=== PATIENT | female | born 1955 | race Caucasian/White ===

== ENCOUNTER 2017-09-09 08:00 | Inpatient (IN) | payer MEDICARE ==
[2017-09-16] MEDS ORDERED: Midazolam HCl 2 mg/2 ml Vial ONE (06:19)
[2017-09-16] MEDS ORDERED: Fentanyl 100 MCG/2 ML VIAL ONE ×2 (06:19→07:00)
[2017-09-16] MEDS ORDERED: Ropivacaine 0.2% HCl/PF 20 ML ONE (06:20)
[2017-09-16] MEDS ORDERED: Bupivacaine/Epinephrine 0.25% 30 ML VIAL ONE (06:40)
[2017-09-16] MEDS ORDERED: Clindamycin/D5W 900 mg/50 ml Premix Bag ONE (06:40)
[2017-09-16] MEDS ORDERED: Tranexamic Acid 1,000 MG/100 ML BAG ONE ×2 (06:43→08:51)
[2017-09-16] MEDS ORDERED: Ropivacaine HCl/PF 250 ML in Premix Bag 1 BAG NERVE BLCK SCH (06:54)
[2017-09-16] MEDS ORDERED: HYDROcodone/Acetaminophen 10/325 mg Tablet PO PRN ×4 (06:54→09:41)
[2017-09-16] MEDS ORDERED: Zolpidem Tartrate 5 MG TAB PO PRN ×2 (06:54→09:41)
[2017-09-16] MEDS ORDERED: traMADol HCl 50 MG TAB PO PRN ×3 (06:54→09:41)
[2017-09-16] MEDS ORDERED: Ondansetron HCl/PF 4 MG/2 ML Vial IVP PRN ×3 (06:54→09:41)
[2017-09-16] MEDS ORDERED: Promethazine HCl 25 MG/ML VIAL IM PRN ×3 (06:54→09:41)
[2017-09-16] MEDS ORDERED: Fentanyl 100 MCG/2 ML VIAL IV PRN (06:55)
[2017-09-16] MEDS ORDERED: Promethazine HCl 25 MG/ML VIAL SLOW IVP PRN (08:47)
--- NOTE | 2017-09-16 09:05 | RAD ---
LEFT KNEE TWO VIEWS: History: 62-year-old female status post total knee replacement. FINDINGS: Recent post op total knee replacement changes are noted without evidence of dislocation or periprosth etic fracture. IMPRESSION: Recent unremarkable status post total knee replacement. POS: [facility]
[2017-09-16] MEDS ORDERED: Acetaminophen 325 MG TAB PO PRN (09:41)
[2017-09-16] MEDS ORDERED: Multivitamin W/ Minerals 1 TAB PO SCH ×2 (09:41→10:15)
[2017-09-16] MEDS ORDERED: Aspirin 325 MG TAB PO SCH (09:41)
[2017-09-16] MEDS ORDERED: Ferrous Gluconate 324 MG TAB PO SCH ×2 (09:41→10:15)
[2017-09-16] MEDS ORDERED: Senokot S 8.6-50 MG TAB PO SCH ×2 (09:41→10:15)
[2017-09-16] MEDS ORDERED: Fentanyl 100 MCG/2 ML VIAL SLOW IVP PRN (09:41)
[2017-09-16] MEDS ORDERED: diphenhydrAMINE 25 MG CAP PO PRN (09:41)
[2017-09-16] MEDS ORDERED: hydrALAZINE 20 MG/ML VIAL SLOW IVP PRN (10:23)
[2017-09-16] MEDS ORDERED: Labetalol HCl 100 MG/20 ML VIAL SLOW IVP PRN (10:23)
[2017-09-16 10:38] VITALS: BMI 25.6
[2017-09-16] MEDS: Dextrose 5 %-0.45 % NaCl 1,000 ML IV SCH (11:07)
--- NOTE | 2017-09-16 12:53 | OP ---
DATE OF PROCEDURE: 09/16/2017 PREOPERATIVE DIAGNOSIS: Left knee osteoarthritis. POSTOPERATIVE DIAGNOSIS: Left knee osteoarthritis. PROCEDURE PERFORMED: Left total knee arthroplasty. STAFF: Ward Castro M.D. BLIND HANGER: NAYLA Rolon ANESTHESIA: Kirk. The patient received a LMA with single shot, had a canal catheter and single puneet t sciatic. ESTIMATED BLOOD LOSS: 100 mL. TOURNIQUET TIME: 64 minutes at 300 mmHg. ANTIBIOTICS: Vancomycin 1 gram, clindamycin 900. The patient received TXA 1 gm preoperative. IMPLANTS: The patient had a Cristian size 3 CR femur, size 2 CR tibial baseplate, A27 patella and a 9 mm CS poly. COMPLICATIONS: None. HISTORY OF PRESENT ILLNESS: Mrs. Hudson is a 62-year-old female who presented after 8 years of knee p ain. The patient had the [place] left knee. The patient's medial knee pain had previous injections, morning stiffness, weather changes, she desired relief. I discussed with her the risks and benefits of left total knee arthroplasty including pain, scar, bleeding, infection, damage to vital structure s, decreased range of motion or strength, continued pain despite surgical intervention, need for furt her surgeries, failure of procedure. The patient understood the risks and benefits and elected to pr oceed. PROCEDURE IN DETAIL: Timeout was performed designating the patient's left lower extremity as the ope rative site based on sight, consents markings. After completion of timeout, the patient's left lower extremity was prepped and draped in sterile fashion. Tourniquet was brought up and left up for a to cris of 64 minutes. Anterior midline approach medial parapatellar arthrotomy and did a medial soft ti ssue release, removed osteophytes, took the fat pad, everted the patella, exposed the distal femur. Sized and mapped out our distal femur cut at 0 degrees varus valgus and 4 degrees of interest slope, 8 and 6 mm respectively. I then sized to size 3 femur. We cut our block, cut our femur, we then map ped out our tibia, during release of our PCL to expose our tibia better, we mapped and cut at 0 degre es varus valgus, 1 and 5, 4 degrees posterior slope. We were happy with the alignment of the cut. W e removed it, placed our lamina hadoop administrator, medial and lateral osteophytes as well as posteriorly as we ll as our menisci. After completion of this, we then placed a size 2 tibia with a 9 mm poly and the p atient had a 3 CR femur. I liked the overall tracking, full extension, good stability in flexion and full extension. The patient was stable with the varus and valgus stresses anterior, posterior trans lation. We then washed, everted the patella, then went from 22 down to about 12 mm and placed an A27 button. We then drilled our lugs for our tibia, cut our keel for the tibia. We cemented in our tib ia, placed our poly, cemented our femur. We cement our patella, removed all excess cement, washed th e joint, injected 35 mL of Marcaine 0.25% with epinephrine into the joint. We then closed with two # 2 Vicryl, #2 Quill, 0 Quill, then 2-0 Quill, and glue. The patient will be weightbearing as tolerated. The patient will follow [facility] protocol, admitte d to the hospital.
[2017-09-16] MEDS: Clindamycin/D5W 900 MG in Premix Bag 1 BAG IVPB SCH ×2 (13:41→19:58)
--- NOTE | 2017-09-16 13:48 | PDOC.PN ---
- Subjective Encounter Start Date: 09/16/17 Encounter Start Time: 13:45 Patient seen and examined. No new complaints. Consult for Med mngt. Follow [facility]. - Objective MAR Reviewed: Yes Vital Signs & Weight: Vital Signs (12 hours) Temp Pulse Resp BP Pulse Ox 09/16/17 10:00 97.8 F 74 18 161/72 H 95 Weight Weight 140 lb EKG Reviewed by me: Yes (EKG SR) Phys Exam - Physical Examination Constitutional: NAD Respiratory: no wheezing, no rhonchi Cardiovascular: RRR, no rub Gastrointestinal: soft, non-tender, positive bowel sounds Musculoskeletal: no edema Neurological: non-focal, moves all 4 limbs Psychiatric: A&O x 3 Dx/Plan - Plan DVT proph w/SCDs IMPRESSION: 1. HTN 2. HLD 3. CKD 2 4. Chronic diastolic HF - compensated 5. Depression - no suicidal ideation PLAN: * Cont Toprol XL at home dose. * Resume Citalopram * Monitor closely for volume overload Review of Systems - Review of Systems Constitutional: negative: Fever, Chills, Sweats, Weakness, Malaise Respiratory: negative: Cough, Dry, Shortness of Breath, Hemoptysis, SOB with Excertion, Pleuritic Pain, Sputum, Wheezing Cardiovascular: negative: Chest Pain, Palpitations, Orthopnea, Paroxysmal Noc. Dyspnea, Edema, Light Headedness - Medications/Allergies Allergies/Adverse Reactions: Allergies Allergy/AdvReac Type Severity Reaction Status Date / Time Penicillins Allergy Verified 09/09/17 12:27 Medications: Current Medications Acetaminophen (Tylenol) 650 mg PO Q4H PRN PRN Reason: LOPES/ T > 101F; Mild Pain (1-3) Hydrocodone Bitart/Acetaminophen ([place] 10/325) 1 tab PO Q4H PRN PRN Reason: Moderate Pain (4-6) Hydrocodone Bitart/Acetaminophen ([place] 10/325) 2 tab PO Q4H PRN PRN Reason: Severe Pain (7-10) Aspirin (Aspirin Chewable) 81 mg PO BID [facility] Citalopram Hydrobromide (Celexa) 20 mg PO BID [facility] Diphenhydramine HCl (Benadryl) 25 mg PO Q6H PRN PRN Reason: Itching Fentanyl (Sublimaze) 50 mcg SLOW IVP Q30MIN PRN PRN Reason: Moderate Pain (4-6) Fentanyl (Sublimaze) 100 mcg SLOW IVP Q1H PRN PRN Reason: Severe Pain (7-10) Ferrous Gluconate (Fergon) 324 mg PO BID [facility] Hydralazine HCl (Apresoline) 5 mg SLOW IVP Q4H PRN PRN Reason: SBP Greater Than 180 Hydrocodone Bitartrate/Ibuprofen (Vicoprofen 7.5/200) 1 tab PO Q4H PRN PRN Reason: Mild Pain (1-3) Hydrocodone Bitartrate/Ibuprofen (Vicoprofen 7.5/200) 2 tab PO Q4H PRN PRN Reason: Moderate Pain (4-6) Ropivacaine 250 ml/ Device 250 mls @ 0 mls/hr [facility]ERVE BLCK INF [facility] PRN Reason: As Directed Clindamycin Phosphate/Dextrose (900 mg/ Device) 50 mls @ 100 mls/hr IVPB 1300, 1900 [facility] Stop: 09/16/17 19:29 Last Admin: 09/16/17 13:41 Dose: 50 mls Dextrose/Sodium Chloride (D5 1/2 Ns) 1,000 mls @ 100 mls/hr IV .Q10H [facility] Last Admin: 09/16/17 11:07 Dose: Not Given Vancomycin HCl 1 gm/ Device 200 mls @ 200 mls/hr IVPB 1900 [facility] Stop: 09/16/17 19:59 Iron/Minerals/Multivitamins (Theragran M) 1 tab PO DAILY [facility] Labetalol HCl (Normodyne) 10 mg SLOW IVP Q4H PRN PRN Reason: Systolic BP > 180 Metoprolol Succinate (Toprol Xl) 50 mg PO BID [facility] Ondansetron HCl (Zofran) 4 mg IVP Q6H PRN PRN Reason: Nausea/Vomiting Promethazine HCl (Phenergan) 12.5 mg IM Q4H PRN PRN Reason: Nausea/Vomiting Senna/Docusate Sodium (Senokot S) 2 tab PO BID [facility] Sodium Chloride (Flush - Normal Saline) 10 ml IVF Q12HR [facility] Last Admin: 09/16/17 11:07 Dose: Not Given Sodium Chloride (Flush - Normal Saline) 10 ml IVF PRN PRN PRN Reason: Saline Flush Tramadol HCl (Ultram) 100 mg PO Q6H PRN PRN Reason: Mild Pain (1-3) Zolpidem Tartrate (Ambien) 5 mg PO HSPRN PRN PRN Reason: Insomnia
[2017-09-16] MEDS: Fentanyl 100 MCG/2 ML VIAL SLOW IVP PRN ×2 (14:47→22:18)
[2017-09-16] MEDS ORDERED: Propofol 200 MG/20 ML VIAL ONE (16:14)
[2017-09-16] MEDS ORDERED: ePHEDrine/0.9% NaCl/PF SYRINGE 50 mg/10 ml ONE (16:14)
[2017-09-16] MEDS ORDERED: Ondansetron HCl/PF 4 MG/2 ML Vial ONE (16:14)
[2017-09-16] MEDS ORDERED: Dexamethasone 20 MG/5 ML VIAL ONE (16:14)
[2017-09-16] MEDS ORDERED: Vancomycin HCl 1 GM in Premix Bag 1 BAG IVPB SCH (19:00)
[2017-09-16] MEDS: Citalopram 20 MG TAB PO SCH (19:59)
[2017-09-16] MEDS: Senokot S 8.6-50 MG TAB PO SCH (21:30)
[2017-09-16] MEDS: Ferrous Gluconate 324 MG TAB PO SCH (21:31)
[2017-09-17] MEDS: Dextrose 5 %-0.45 % NaCl 1,000 ML IV SCH ×3 (01:27→15:45)
[2017-09-17] MEDS: Fentanyl 100 MCG/2 ML VIAL SLOW IVP PRN ×2 (02:30→05:49)
[2017-09-17 05:48] LABS: Hematocrit 35.6 % (36.0-47.0); Mean Platelet Volume 7.3 fL (7.4-10.4); Red Blood Cell (RBC) Count 3.69 mill/uL (4.20-5.40); White Blood Cell (WBC) Count 14.5 thou/uL (4.8-10.8)
[2017-09-17] MEDS ORDERED: Morphine 4 MG/ML VIAL ONE (08:21)
[2017-09-17] MEDS ORDERED: Bupivacaine PF 0.5% 30 ML VIAL ONE (08:24)
[2017-09-17] MEDS ORDERED: Morphine CADD 1 MG/ML CADD IV PRN (09:37)
[2017-09-17] MEDS ORDERED: diphenhydrAMINE 50 MG/ML VIAL IVP PRN (09:38)
[2017-09-17] MEDS: Ferrous Gluconate 324 MG TAB PO SCH ×2 (09:39→21:10)
[2017-09-17] MEDS: Multivitamin W/ Minerals 1 TAB PO SCH (09:40)
[2017-09-17] MEDS: Citalopram 20 MG TAB PO SCH ×2 (09:40→21:11)
[2017-09-17] MEDS: Senokot S 8.6-50 MG TAB PO SCH ×2 (09:40→21:10)
[2017-09-17] MEDS ORDERED: Sodium Chloride 0.9% 500 ML IVPB SCH (09:45)
[2017-09-17] MEDS ORDERED: Ondansetron HCl/PF 4 MG/2 ML Vial IVP SCH (09:45)
[2017-09-17] MEDS: Acetaminophen 1,000 MG in Premix Bag 1 BAG IVPB SCH ×3 (10:18→21:11)
[2017-09-17] MEDS ORDERED: hydrALAZINE 20 MG/ML VIAL SLOW IVP PRN (16:35)
[2017-09-17] MEDS ORDERED: cloNIDine 0.1 MG TAB PO PRN (16:36)
--- NOTE | 2017-09-17 17:54 | PDOC.PN ---
- Subjective Encounter Start Date: 09/17/17 Encounter Start Time: 17:51 Patient seen and examined. No new complaints. No overnight events. BP was uncontrolled earlier - prob due to pain. - Objective MAR Reviewed: Yes Vital Signs & Weight: Vital Signs (12 hours) Temp Pulse Resp BP BP Pulse Ox 09/17/17 16:30 98.1 F 81 16 125/76 95 09/17/17 15:43 68 200/73 H 09/17/17 08:00 98.2 F 68 20 122/76 99 Weight Admit Weight 140 lb Weight 140 lb I&O: 09/16/17 09/17/17 09/18/17 06:59 06:59 06:59 Output Total 900 Balance -900 Result Diagrams: 09/17/17 04:51 Phys Exam - Physical Examination Constitutional: NAD Respiratory: no wheezing, no rhonchi Cardiovascular: RRR, no rub Gastrointestinal: soft, non-tender, positive bowel sounds Musculoskeletal: no edema Neurological: moves all 4 limbs Psychiatric: A&O x 3 Dx/Plan - Plan cont current plan of care, DVT proph w/SCDs IMPRESSION: 1. HTN - was uncontrolled earlier. 2. HLD 3. CKD 2 4. Chronic diastolic HF - compensated 5. Depression - no suicidal ideation PLAN: * Cont current meds as below * Cont PRN antihypertensives * Cont Toprol XL (home dose) * Resume Citalopram * Monitor closely for volume overload Review of Systems - Review of Systems Respiratory: negative: Cough, Dry, Shortness of Breath, Hemoptysis, SOB with Excertion, Pleuritic Pain, Sputum, Wheezing Cardiovascular: negative: Chest Pain, Palpitations, Orthopnea, Paroxysmal Noc. Dyspnea, Edema, Light Headedness - Medications/Allergies Allergies/Adverse Reactions: Allergies Allergy/AdvReac Type Severity Reaction Status Date / Time Penicillins Allergy Verified 09/09/17 12:27 Medications: Current Medications Acetaminophen (Tylenol) 650 mg PO Q4H PRN PRN Reason: LOPES/ T > 101F; Mild Pain (1-3) Aspirin (Aspirin Chewable) 81 mg PO BID [facility] Last Admin: 09/17/17 09:40 Dose: 81 mg Citalopram Hydrobromide (Celexa) 20 mg PO BID [facility] Last Admin: 09/17/17 09:40 Dose: 20 mg Clonidine (Catapres) 0.1 mg PO Q4H PRN PRN Reason: Systolic BP > 180 Diphenhydramine HCl (Benadryl) 25 mg PO Q6H PRN PRN Reason: Itching Diphenhydramine HCl (Benadryl) 25 mg IVP Q6H PRN PRN Reason: Itching,nausea Last Admin: 09/17/17 11:00 Dose: 25 mg Ferrous Gluconate (Fergon) 324 mg PO BID [facility] Last Admin: 09/17/17 09:39 Dose: 324 mg Hydralazine HCl (Apresoline) 5 mg SLOW IVP Q4H PRN PRN Reason: SBP Greater Than 180 Last Admin: 09/17/17 15:43 Dose: 5 mg Hydralazine HCl (Apresoline) 10 mg SLOW IVP Q4H PRN PRN Reason: SBP Greater Than 180 Acetaminophen 1,000 mg/ Device 100 mls @ 400 mls/hr IVPB 0400,1000,1600,2200 [facility] Stop: 09/19/17 04:14 Last Admin: 09/17/17 15:43 Dose: 100 mls Iron/Minerals/Multivitamins (Theragran M) 1 tab PO DAILY [facility] Last Admin: 09/17/17 09:40 Dose: 1 tab Labetalol HCl (Normodyne) 10 mg SLOW IVP Q4H PRN PRN Reason: Systolic BP > 180 Metoprolol Succinate (Toprol Xl) 50 mg PO BID [facility] Last Admin: 09/17/17 09:39 Dose: 50 mg Morphine Sulfate (Morphine Cadd) 0 mg IV INF PRN PRN Reason: Pain Last Admin: 09/17/17 10:28 Dose: 100 mg Ondansetron HCl (Zofran) 4 mg IVP Q6H PRN PRN Reason: Nausea/Vomiting Last Admin: 09/17/17 08:31 Dose: 4 mg Promethazine HCl (Phenergan) 12.5 mg IM Q4H PRN PRN Reason: Nausea/Vomiting Senna/Docusate Sodium (Senokot S) 2 tab PO BID [facility] Last Admin: 09/17/17 09:40 Dose: 2 tab Sodium Chloride (Flush - Normal Saline) 10 ml IVF Q12HR [facility] Last Admin: 09/17/17 09:41 Dose: 10 ml Sodium Chloride (Flush - Normal Saline) 10 ml IVF PRN PRN PRN Reason: Saline Flush Zolpidem Tartrate (Ambien) 5 mg PO HSPRN PRN PRN Reason: Insomnia
[2017-09-18] MEDS: Acetaminophen 1,000 MG in Premix Bag 1 BAG IVPB SCH ×2 (04:34→10:11)
[2017-09-18 05:48] LABS: Hematocrit 35.2 % (36.0-47.0); Mean Platelet Volume 7.3 fL (7.4-10.4); Red Blood Cell (RBC) Count 3.65 mill/uL (4.20-5.40); White Blood Cell (WBC) Count 12.3 thou/uL (4.8-10.8)
[2017-09-18 05:59] LABS: Anion Gap 9 mmol/L (10-20); BUN (Urea Nitrogen) 11 mg/dL (9.8-20.1); BUN/Creatinine Ratio 14.47; Calc. Creatinine Clearance 75 mL/min (70-130); Calcium 9.2 mg/dL (7.8-10.44); Carbon Dioxide 26 mmol/L (23-31); Chloride 102 mmol/L (98-107); Estimated GFR-MDRD 77; Magnesium 1.6 mg/dL (1.6-2.6); Phosphorus 3.4 mg/dL (2.3-4.7)
[2017-09-18 08:58] VITALS: BP 163/62; TEMP 99.9
[2017-09-18] MEDS ORDERED: HYDROcodone/Acetaminophen 10/325 mg Tablet PO PRN ×2 (08:58)
[2017-09-18] MEDS: Multivitamin W/ Minerals 1 TAB PO SCH (10:04)
[2017-09-18] MEDS: Citalopram 20 MG TAB PO SCH (10:04)
[2017-09-18] MEDS: Ferrous Gluconate 324 MG TAB PO SCH (10:04)
[2017-09-18] MEDS: Senokot S 8.6-50 MG TAB PO SCH (10:04)
--- NOTE | 2017-09-18 11:46 | PDOC.PN ---
- Subjective Encounter Start Date: 09/18/17 Encounter Start Time: 08:40 Pt seen for followup re: hypertension. Denies chest pain, shortness of breath, fevers or chills. - Objective MAR Reviewed: Yes Vital Signs & Weight: Vital Signs (12 hours) Temp Pulse Resp BP Pulse Ox 09/18/17 08:00 99.9 F H 73 18 93 L 09/18/17 07:40 99.9 F H 73 18 163/62 H 93 L 09/18/17 04:39 97.9 F 74 16 131/76 95 09/18/17 00:07 97.7 F 82 17 128/76 95 Weight Admit Weight 140 lb Weight 140 lb I&O: 09/17/17 09/18/17 09/19/17 06:59 06:59 06:59 Intake Total 1050 Output Total 900 1700 Balance -900 -650 Result Diagrams: 09/18/17 05:15 09/18/17 05:15 Phys Exam - Physical Examination Constitutional: NAD HEENT: moist MMs Neck: supple Respiratory: clear to auscultation bilateral Cardiovascular: RRR Gastrointestinal: positive bowel sounds s/p L knee surgery Neurological: moves all 4 limbs Psychiatric: normal affect Skin: no rash Dx/Plan (1) HTN (hypertension) Code(s): I10 - ESSENTIAL (PRIMARY) HYPERTENSION Status: Chronic (2) Dyslipidemia Code(s): E78.5 - HYPERLIPIDEMIA, UNSPECIFIED Status: Chronic (3) Chronic diastolic heart failure Code(s): I50.32 - CHRONIC DIASTOLIC (CONGESTIVE) HEART FAILURE Status: Chronic - Plan PT/OT, out of bed/ambulate * . Monitor vital signs, titrate antihypertensives as needed. Ambulate pt. Review of Systems - Review of Systems Respiratory: negative: Cough, Dry, Shortness of Breath, Hemoptysis, SOB with Excertion, Pleuritic Pain, Sputum, Wheezing Cardiovascular: negative: Chest Pain, Palpitations, Orthopnea, Paroxysmal Noc. Dyspnea, Edema, Light Headedness - Medications/Allergies Allergies/Adverse Reactions: Allergies Allergy/AdvReac Type Severity Reaction Status Date / Time Penicillins Allergy Verified 09/09/17 12:27 Medications: Current Medications Acetaminophen (Tylenol) 650 mg PO Q4H PRN PRN Reason: LOPES/ T > 101F; Mild Pain (1-3) Hydrocodone Bitart/Acetaminophen ([place] 10/325) 1 tab PO Q4H PRN PRN Reason: Pain 1-5 Hydrocodone Bitart/Acetaminophen ([place] 10/325) 2 tab PO Q4H PRN PRN Reason: Pain 6-10 Aspirin (Aspirin Chewable) 81 mg PO BID [facility] Last Admin: 09/18/17 10:05 Dose: 81 mg Citalopram Hydrobromide (Celexa) 20 mg PO BID [facility] Last Admin: 09/18/17 10:04 Dose: 20 mg Clonidine (Catapres) 0.1 mg PO Q4H PRN PRN Reason: Systolic BP > 180 Diphenhydramine HCl (Benadryl) 25 mg PO Q6H PRN PRN Reason: Itching Diphenhydramine HCl (Benadryl) 25 mg IVP Q6H PRN PRN Reason: Itching,nausea Last Admin: 09/17/17 11:00 Dose: 25 mg Ferrous Gluconate (Fergon) 324 mg PO BID [facility] Last Admin: 09/18/17 10:04 Dose: 324 mg Hydralazine HCl (Apresoline) 5 mg SLOW IVP Q4H PRN PRN Reason: SBP Greater Than 180 Last Admin: 09/17/17 15:43 Dose: 5 mg Hydralazine HCl (Apresoline) 10 mg SLOW IVP Q4H PRN PRN Reason: SBP Greater Than 180 Acetaminophen 1,000 mg/ Device 100 mls @ 400 mls/hr IVPB 0400,1000,1600,2200 [facility] Stop: 09/19/17 04:14 Last Admin: 09/18/17 10:11 Dose: 100 mls Iron/Minerals/Multivitamins (Theragran M) 1 tab PO DAILY [facility] Last Admin: 09/18/17 10:04 Dose: 1 tab Labetalol HCl (Normodyne) 10 mg SLOW IVP Q4H PRN PRN Reason: Systolic BP > 180 Metoprolol Succinate (Toprol Xl) 50 mg PO BID [facility] Last Admin: 09/18/17 10:04 Dose: 50 mg Ondansetron HCl (Zofran) 4 mg IVP Q6H PRN PRN Reason: Nausea/Vomiting Last Admin: 09/17/17 08:31 Dose: 4 mg Promethazine HCl (Phenergan) 12.5 mg IM Q4H PRN PRN Reason: Nausea/Vomiting Senna/Docusate Sodium (Senokot S) 2 tab PO BID [facility] Last Admin: 09/18/17 10:04 Dose: 2 tab Sodium Chloride (Flush - Normal Saline) 10 ml IVF Q12HR [facility] Last Admin: 09/18/17 10:08 Dose: Not Given Sodium Chloride (Flush - Normal Saline) 10 ml IVF PRN PRN PRN Reason: Saline Flush Zolpidem Tartrate (Ambien) 5 mg PO HSPRN PRN PRN Reason: Insomnia
--- NOTE | 2017-09-19 13:01 | DIS ---
DATE OF ADMISSION: 09/16/2017 DATE OF DISCHARGE: 09/18/2017 ADMITTING DIAGNOSIS: Left knee severe osteoarthritis. DISCHARGE DIAGNOSIS: Left knee severe osteoarthritis. PROCEDURE PERFORMED: Left total knee arthroplasty. HISTORY OF PRESENT ILLNESS: Ms. Hudson is a 62-year-old female who uneventful left total knee arthroplasty. The patient postoperatively had intense pain and received Fentanyl REPAIRER AND CHECKER as a revision of her adductor canal block did not improve her pain. The patient did not work with therapy on her first day. She did work with therapy on postop day #2, the patient ambulated, was able to tolerate p.o., followed [facility] protocols for discharge. The patient was discharged to home with followup in 3 weeks. The patient was given hydrocodone for pain relief. She will take an 81 mg aspirin b.i.d. until followup. She will work on range of motion and follow wound care as needed and wound dressing changes as needed and the patient will follow up with me in 3 weeks. DEXTER
== END 2017-09-18 15:30 | disposition home or self-care (01) | DRG 470 ==
LOC: SJJU 09-16 05:37
PROVIDERS: ADMIT Orthopaedic Surgery; ATTEND Orthopaedic Surgery
PROC: 0SRD0J9 Replacement of Left Knee Joint with Synthetic Substitute, Cemented, Open Approach (ICD-10-PCS; principal; 2017-09-16)
PROC: 3E0T3BZ Introduction of Anesthetic Agent into Peripheral Nerves and Plexi, Percutaneous Approach (ICD-10-PCS; 2017-09-16)
DX: M17.12 Unilateral primary osteoarthritis, left knee (principal); I13.0 Hypertensive heart and chronic kidney disease with heart failure and stage 1 through stage 4 chronic kidney disease, or unspecified chronic kidney disease; I50.32 Chronic diastolic (congestive) heart failure; E78.5 Hyperlipidemia, unspecified; N18.2 Chronic kidney disease, stage 2 (mild); F32.9 Major depressive disorder, single episode, unspecified; Z90.5 Acquired absence of kidney
CPT/HCPCS: 36415; 80069; 83735; 85027; A4216; C1713; C1776; G8978-GP-CL; G8979-GP-CJ; J0131; J0360; J1100; J1200; J2250; J2270; J2274; J2405; J2704; J2795; J3010; J3370; J3490; S0020

== ENCOUNTER 2017-09-09 09:01 | Outpatient (CLI) | payer MEDICARE ==
[2017-09-09 10:22] LABS: Hematocrit 40.2 % (36.0-47.0); Mean Platelet Volume 7.5 fL (7.4-10.4); Red Blood Cell (RBC) Count 4.22 mill/uL (4.20-5.40); White Blood Cell (WBC) Count 8.3 thou/uL (4.8-10.8)
[2017-09-09 10:31] LABS: Bilirubin Negative (Negative); Blood, Urine Trace (Negative); Glucose, Urine (Dipstick) Negative (Negative); Ketone, Urine Negative (Negative); Nitrite Negative (Negative); Protein, Urine (Dipstick) 100 mg/dL (Neg-Trace); Urobilinogen 0.2 mg/dL (0.2-1.0)
[2017-09-09 10:34] LABS: Bacteria/HPF None Seen HPF (None Seen); Hyaline Casts/LPF 0-3 HYALINE CAST LPF (0-3 Hyaline); Squamous Epithelial 0-3 HPF (0-3); WBC/HPF 0-3 HPF (0-3)
[2017-09-09 10:40] LABS: Prothrombin Time 12.2 SEC (12.0-14.7)
[2017-09-09 10:49] LABS: Anion Gap 11 mmol/L (10-20); BUN (Urea Nitrogen) 23 mg/dL (9.8-20.1); Calc. Creatinine Clearance 0 mL/min (70-130); Calcium 9.6 mg/dL (7.8-10.44); Carbon Dioxide 28 mmol/L (23-31); Chloride 104 mmol/L (98-107); Estimated GFR-MDRD 73
--- NOTE | 2017-09-10 07:55 | EKG ---
Test Reason : Blood Pressure : / mmHG Vent. Rate : 067 BPM Atrial Rate : 067 BPM P-R Int : 158 ms QRS Dur : 070 ms QT Int : 402 ms P-R-T Axes : 084 079 066 degrees QTc Int : 424 ms Normal sinus rhythm Normal ECG Confirmed by EMILY ALY ([id number]) on 09/10/2017 7:54:22 AM Referred By: ERNESTO Confirmed By:EMILY ALY
== END 2017-09-09 09:02 | disposition home or self-care (01) ==
LOC: LABBT 09:01
PROVIDERS: ATTEND Orthopaedic Surgery
DX: Z01.818 Encounter for other preprocedural examination (principal); M17.12 Unilateral primary osteoarthritis, left knee
CPT/HCPCS: 80048; 81001; 85027; 85610; 86850; 86900; 86901; 87081; 93005; 93010

== ENCOUNTER 2019-04-29 14:19 | Outpatient (CLI) | payer MEDICARE, MEDICAID | END 2019-04-29 14:20 | disposition home or self-care (01) | LOC: CTENTCT 14:19 | PROVIDERS: ATTEND Otolaryngology Plastic Surgery within the Head & Neck | DX: J34.2 Deviated nasal septum (principal) | CPT/HCPCS: 70486 ==

== ENCOUNTER 2019-08-26 08:35 | Outpatient (CLI) | payer MEDICARE, MEDICAID ==
--- NOTE | 2019-08-26 11:07 | MRI ---
MR of the left shoulder without contrast INDICATION: Left shoulder pain. TECHNIQUE: Sagittal T1, axial and coronal PD fat sat, sagittal and coronal T2 fat sat images were obt ained of the left shoulder. COMPARISON: None FINDINGS: Motion artifact limits image detail. Rotator cuff: There is a full-thickness tear of the supraspinatus tendon with retraction of the tendo n 2.3 cm from the footprint. There is also a high-grade partial thickness articular surface tear extension from the level the conjoined tendon into the anterior infraspinatus with some intratendinou s delamination. This is best seen on image 16 of series 5. No muscular atrophy is evident. There is moderate tendinosis of the subscapularis and infraspinatus tendons. There is moderate encroachment fr om an anterior inferior projecting acromial spur off the acromial process. There is also moderate AC joint osteoarthrosis that likely induces some mild encroachment on the subjacent supraspinatus. Glenohumeral joint: There is mild glenohumeral osteoarthrosis. There are 2 prominent subchondral cyst like abnormalities involving the central and inferior aspect of the glenoid measuring 9.3 and 9 mm respectively in size. Glenoid labrum: There is degenerative fraying of the superior glenoid labrum and biceps anchor comple x. Biceps tendon and biceps anchor: There is a partial-thickness split tear involving the intra-articula r biceps tendon extending from the proximal bicipital groove to its insertion to the biceps anchor. Acromion clavicular joint: Moderate AC joint osteoarthrosis Subacromial subdeltoid space: There is fluid distention Axillary region: No lymphadenopathy. Surrounding shoulder musculature: Normal. No evidence of atrophy or strain. IMPRESSION: 1. Complete supraspinatus tear with partial thickness tear extension into the anterior infraspinatus with intratendinous delamination involving the anterior infraspinatus up to the level of the musculotendinous junction. 2. Split tear of the proximal long head of the biceps tendon. 3. Mild glenohumeral osteoarthrosis with areas of focal full-thickness articular cartilage defects in volving the central and inferior glenoid articular surface. 4. Moderate AC joint osteoarthrosis with moderate encroachment. There is a prominent anterior inferio r projecting acromial spur. 5. Moderate subscapularis and infraspinatus tendinosis
== END 2019-08-26 08:36 | disposition home or self-care (01) ==
LOC: SCSMRI 08:35
PROVIDERS: ATTEND Orthopaedic Surgery
DX: M75.102 Unspecified rotator cuff tear or rupture of left shoulder, not specified as traumatic (principal); S46.812A Strain of other muscles, fascia and tendons at shoulder and upper arm level, left arm, initial encounter; M77.9 Enthesopathy, unspecified

== ENCOUNTER 2019-12-09 09:41 | Day surgery (SDC) | payer MEDICARE, MEDICAID ==
[2019-12-08 13:03] VITALS: BMI 26.5
[2019-12-09] MEDS ORDERED: Midazolam HCl 2 mg/2 ml Vial ONE (10:21)
[2019-12-09] MEDS ORDERED: Fentanyl 100 MCG/2 ML VIAL ONE (10:21)
[2019-12-09 10:41] LABS: Bacteria/HPF None Seen HPF (None Seen); Bilirubin Negative (Negative); Blood, Urine Trace (Negative); Clarity Clear (Clear); Glucose, Urine (Dipstick) Normal (Negative); Leukocyte Negative Leu/uL (Negative); Nitrite Negative (Negative); Protein, Urine (Dipstick) 200 mg/dL (Neg-Trace); RBC/HPF 0-3 HPF (0-3); Squamous Epithelial 0-3 HPF (0-3); Urobilinogen Normal mg/dL (Less than 2)
[2019-12-09 10:59] LABS: #Basophils 0.1 thou/uL (0.0-0.2); #Eosinphils 0.2 thou/uL (0.0-0.7); #Lymphocytes 3.2 thou/uL (1.20-3.40); #Monocytes 0.8 thou/uL (0.11-0.59); #Neutrophils 4.9 thou/uL (1.40-6.50); %Basophils 1.3 % (0.0-1.0); %Eosinophils 2.3 % (0.0-10.0); %Lymphocytes 34.7 % (21.0-51.0); %Monocytes 8.2 % (0.0-10.0); %Neutrophils 53.6 % (42.0-75.0); Hemoglobin 13.8 g/dL (12.0-16.0); Mean Corpuscular HGB CONC 33.5 g/dL (32.0-36.0); Mean Corpuscular Hemoglobin 31.4 pg (27.0-31.0); Mean Corpuscular Volume 93.6 fL (78.0-98.0); Mean Platelet Volume 7.8 fL (7.4-10.4); Platelet Count 245 thou/uL (130-400); RBC Distribution Width 12.1 % (11.5-14.5); Red Blood Cell (RBC) Count 4.39 mill/uL (4.20-5.40); White Blood Cell (WBC) Count 9.2 thou/uL (4.8-10.8)
[2019-12-09] MEDS ORDERED: Clindamycin/D5W 900 mg/50 ml Premix Bag ONE (11:10)
[2019-12-09 11:21] LABS: Anion Gap 14 mmol/L (10-20); BUN (Urea Nitrogen) 20 mg/dL (9.8-20.1); Calc. Creatinine Clearance 60 mL/min (70-130); Calcium 9.2 mg/dL (7.8-10.44); Carbon Dioxide 22 mmol/L (23-31); Chloride 106 mmol/L (98-107); Estimated GFR-MDRD 58; Glucose 88 mg/dL (80-115); Potassium 4.5 mmol/L (3.5-5.1); Sodium 137 mmol/L (136-145)
--- NOTE | 2019-12-09 11:36 | RAD ---
RADIOGRAPH CHEST 2 VIEWS: DATE: 12/09/2019 HISTORY: 64-year-old female for preoperative clearance. FINDINGS: There is no air space density, pulmonary edema, pleural effusion, pneumothorax, or cardiomegaly. In the superior segment of the right lower lobe, there is a benign 2 cm pulmonary mass which has been stable compared to prior chest radiograph of 02/27/2011. IMPRESSION: 1. No acute cardiopulmonary findings. 2. Benign right lower lobe pulmonary mass. jnr POS: [facility]
--- NOTE | 2019-12-09 15:16 | CON ---
DATE OF CONSULTATION: 12/09/2019 HISTORY OF PRESENT ILLNESS: Ms. Raymond is a 64-year-old female, who presented for left rotator cuff repair, wanted admission to outpatient surgery. The patient was noted to have a blood pressure of 270/100, which did not go down. The patient had a previous evaluation by Dr. Klein and I contacted him to discuss elevated blood pressure. We decided to cancel her surgery today and would like to be admitted by the [facility] and they will consult Dr. Klein for further management of her heart and blood pressures. The family and both the patient and daughter agree with this plan of care. I discussed that we will need clearance and better blood control before surgery can be completed. She has an increased risk of stroke or heart attack if we were to proceed with surgery and therefore are in total agreement with cancelling. We will see her back in clinic on an as-needed basis. Job ID: [id number] MTDD
== END 2019-12-09 12:12 | disposition home or self-care (01) ==
LOC: SDC 09:41
PROVIDERS: ATTEND Orthopaedic Surgery
DX: M75.122 Complete rotator cuff tear or rupture of left shoulder, not specified as traumatic (principal); M67.922 Unspecified disorder of synovium and tendon, left upper arm; Z53.09 Procedure and treatment not carried out because of other contraindication; I10 Essential (primary) hypertension; E78.5 Hyperlipidemia, unspecified; J44.9 Chronic obstructive pulmonary disease, unspecified; F17.200 Nicotine dependence, unspecified, uncomplicated; F32.9 Major depressive disorder, single episode, unspecified; Z79.82 Long term (current) use of aspirin; Z79.899 Other long term (current) drug therapy
CPT/HCPCS: 71046; 80048; 81001; 85025; 93005; 93010; J0690; J2250; J3010; J3490

== ENCOUNTER 2019-12-09 12:22 | Emergency (ER) | payer MEDICARE, MEDICAID ==
--- NOTE | 2019-12-09 13:11 | RAD ---
PORTABLE CHEST 1 VIEW: DATE: 12/09/2019. TIME: 12:58 PM. HISTORY: Hypertension. FINDINGS: Comparison is made with the exams of earlier today (11:30 a.m.) and 11/03/2015. The heart size is nor mal. The lungs are expanded without focal areas of consolidation, pneumothorax, or pleural effusions . The 2 cm calcified granuloma has been stable since CT scan of 02/27/2011. IMPRESSION: No acute process. POS: [facility]
[2019-12-09 13:58] LABS: #Basophils 0.1 thou/uL (0.0-0.2); #Eosinphils 0.2 thou/uL (0.0-0.7); #Lymphocytes 3.3 thou/uL (1.20-3.40); #Monocytes 0.7 thou/uL (0.11-0.59); #Neutrophils 5.7 thou/uL (1.40-6.50); %Basophils 0.6 % (0.0-1.0); %Eosinophils 2.3 % (0.0-10.0); %Lymphocytes 32.7 % (21.0-51.0); %Monocytes 6.8 % (0.0-10.0); %Neutrophils 57.5 % (42.0-75.0); Hemoglobin 13.8 g/dL (12.0-16.0); Mean Corpuscular HGB CONC 33.1 g/dL (32.0-36.0); Mean Corpuscular Volume 93.9 fL (78.0-98.0); Mean Platelet Volume 7.6 fL (7.4-10.4); Platelet Count 251 thou/uL (130-400); RBC Distribution Width 12.2 % (11.5-14.5); Red Blood Cell (RBC) Count 4.45 mill/uL (4.20-5.40); White Blood Cell (WBC) Count 9.9 thou/uL (4.8-10.8)
[2019-12-09 14:33] LABS: ALT (SGPT) 25 U/L (8-55); AST (SGOT) 19 U/L (5-34); Albumin 4.1 g/dL (3.4-4.8); Alkaline Phosphatase 87 U/L (40-110); Anion Gap 16 mmol/L (10-20); BUN (Urea Nitrogen) 19 mg/dL (9.8-20.1); Bilirubin, Total 0.4 mg/dL (0.2-1.2); CK (CPK) 81 U/L (29-168); Calc. Creatinine Clearance 0 mL/min (70-130); Calcium 9.2 mg/dL (7.8-10.44); Carbon Dioxide 21 mmol/L (23-31); Chloride 106 mmol/L (98-107); Estimated GFR-MDRD 63; Globulin 2.7 g/dL (2.4-3.5); Glucose 92 mg/dL (80-115); Lipase 29 U/L (8-78); Potassium 4.5 mmol/L (3.5-5.1); Protein, Total 6.8 g/dL (6.0-8.3); Sodium 138 mmol/L (136-145)
[2019-12-09] MEDS ORDERED: Metoprolol Tartrate 25 MG TAB ONE (14:43)
== END 2019-12-09 14:00 | disposition home or self-care (01) ==
LOC: ERS 12:22
DX: I10 Essential (primary) hypertension (principal); F19.939 Other psychoactive substance use, unspecified with withdrawal, unspecified; M10.9 Gout, unspecified; F32.9 Major depressive disorder, single episode, unspecified; Z79.899 Other long term (current) drug therapy
CPT/HCPCS: 36415; 71045; 82550; 83690; 84484; 93005; 94760

== ENCOUNTER 2019-12-10 10:48 | Emergency (ER) | payer MEDICARE, MEDICAID ==
[2019-12-10 12:15] LABS: #Basophils 0.1 thou/uL (0.0-0.2); #Eosinphils 0.2 thou/uL (0.0-0.7); #Monocytes 0.7 thou/uL (0.11-0.59); #Neutrophils 4.2 thou/uL (1.40-6.50); %Basophils 0.9 % (0.0-1.0); %Eosinophils 2.2 % (0.0-10.0); %Lymphocytes 36.7 % (21.0-51.0); %Monocytes 8.4 % (0.0-10.0); %Neutrophils 51.8 % (42.0-75.0); Mean Corpuscular HGB CONC 33.7 g/dL (32.0-36.0); Mean Corpuscular Hemoglobin 31.6 pg (27.0-31.0); Mean Corpuscular Volume 93.8 fL (78.0-98.0); Platelet Count 263 thou/uL (130-400); RBC Distribution Width 12.1 % (11.5-14.5); Red Blood Cell (RBC) Count 4.11 mill/uL (4.20-5.40); White Blood Cell (WBC) Count 8.2 thou/uL (4.8-10.8)
[2019-12-10 12:30] LABS: ALT (SGPT) 20 U/L (8-55); AST (SGOT) 15 U/L (5-34); Albumin 3.8 g/dL (3.4-4.8); Alkaline Phosphatase 79 U/L (40-110); Anion Gap 13 mmol/L (10-20); BUN (Urea Nitrogen) 20 mg/dL (9.8-20.1); Bilirubin, Total 0.3 mg/dL (0.2-1.2); Calc. Creatinine Clearance 0 mL/min (70-130); Calcium 8.7 mg/dL (7.8-10.44); Carbon Dioxide 23 mmol/L (23-31); Chloride 106 mmol/L (98-107); Estimated GFR-MDRD 47; Globulin 2.9 g/dL (2.4-3.5); Glucose 98 mg/dL (80-115); Potassium 4.3 mmol/L (3.5-5.1); Protein, Total 6.7 g/dL (6.0-8.3); Sodium 138 mmol/L (136-145)
[2019-12-10] MEDS ORDERED: Lisinopril 10 MG TAB ONE (14:40)
--- NOTE | 2019-12-10 21:27 | CON ---
DATE OF CONSULTATION: 12/10/2019 PRIMARY PAPER REELER: Dr. Paul Klein. HISTORY OF PRESENT ILLNESS: Ms. Tristan Raymond is a pleasant 64-year-old white female, who comes to the ER for hypertension, but she is completely asymptomatic. However, her blood pressure was found to be elevated at primary care doctor's office and she was sent here for evaluation. On my evaluation, Ms. Tristan Raymond denied any chest pain, tightness, pressure. No shortness of breath. Her only issue is that she has had her Celexa stopped recently and she feels she is quite anxious from this and her blood pressure has gone for this. On my evaluation, the machine is checking the blood pressure in the 190s/70s. When I check her blood pressure manually, she was 198/92. She received 10 mg of p.o. lisinopril and it was back down to the 160s/80s after that. Denied any symptoms. PAST MEDICAL HISTORY: 1. Hypertension. 2. Gout. PAST SURGICAL HISTORY: 1. Appendectomy. 2. Hysterectomy. 3. Nephrectomy on the left in 1968. 4. Rotator cuff on the right. SOCIAL HISTORY: Daily marijuana use, which she uses for pain and stress. No alcohol or cigarettes. OUTPATIENT MEDICATIONS: 1. Citalopram 10 mg daily. 2. Metoprolol 50 mg twice daily. ALLERGIES: PENICILLIN, TRAMADOL. REVIEW OF SYSTEMS: A 12-point review of systems was done and was all negative unless stated in the history of present illness. PHYSICAL EXAMINATION: VITAL SIGNS: Temperature 97.6, pulse 62, respiratory rate 16, saturating 99% on room air, blood pressure on arrival was 251/88. On my evaluation, it was much better after her 1st dose of lisinopril at 162/80. GENERAL: Awake alert oriented x3. No distress. HEENT: Normocephalic, atraumatic. NECK: Supple. LUNGS: Clear. CARDIOVASCULAR: S1 and S2. No S3 or S4. No murmurs. ABDOMEN: Soft, positive bowel sounds. EXTREMITIES: No edema. SKIN: Warm and dry. LABORATORY DATA: Laboratory work was reviewed. CBC was unremarkable. Chemistry was unremarkable. Creatinine was slightly higher at 1.16. Troponin was negative x3 and BNP of 200. Albumin of 3.8. IMAGING: Chest x-ray done yesterday was unremarkable. ASSESSMENT: Hypertension. PLAN: 1. We will start her on lisinopril at 10 mg twice daily, her 1st dose was given today. We will also provide a dose of p.r.n. clonidine that she will take a 0.1 mg tablet, if her blood pressure is above 170 systolic or 100 diastolic. She will go and get a blood pressure cuff right now and I have advised her that if her blood pressure remains above 180, she needs to come back for further evaluation. If she has any chest pain, tightness or pressure. If she develops worsening shortness of breath. If she has severe headaches, nose bleeds, or if she starts having visual problems, she needs come back immediately. She verbalized understanding of this and agrees to proceed. She is convinced that the reason her blood pressure is so high is because she had her Celexa stopped in the last few days and it has extremely aggravated for this. 2. She will follow up with Dr. Klein as an outpatient. She has been instructed to come back to the ER or call us if there are any issues. understanding of this and agrees to proceed and agrees to discharge with new prescriptions. I gave the prescriptions and handed them to her myself. Thank you for letting us participate in the care of your patient. Job ID: [id number]
== END 2019-12-10 14:40 | disposition home or self-care (01) ==
LOC: ERS 10:48
DX: I10 Essential (primary) hypertension (principal); M10.9 Gout, unspecified; F32.9 Major depressive disorder, single episode, unspecified; Z79.899 Other long term (current) drug therapy
CPT/HCPCS: 36415; 80053; 83880; 84484; 85025; 93005

== ENCOUNTER 2021-07-11 10:07 | Emergency (ER) | payer MEDICARE, MEDICAID ==
[2021-07-11] MEDS ORDERED: Acetaminophen/Codeine 30-300mg Tablet ONE (13:13)
== END 2021-07-11 14:00 | disposition home or self-care (01) ==
LOC: ERS 10:07
DX: S63.501A Unspecified sprain of right wrist, initial encounter (principal); M70.31 Other bursitis of elbow, right elbow; M25.511 Pain in right shoulder; I10 Essential (primary) hypertension; J44.9 Chronic obstructive pulmonary disease, unspecified; W18.30XA Fall on same level, unspecified, initial encounter

== ENCOUNTER 2022-09-26 09:28 | Outpatient (CLI) | payer MEDICARE, MEDICAID | END 2022-09-26 09:29 | disposition home or self-care (01) | LOC: BICMRI 09:28 | PROVIDERS: ATTEND Orthopaedic Surgery | DX: S46.011A Strain of muscle(s) and tendon(s) of the rotator cuff of right shoulder, initial encounter (principal); S43.401A Unspecified sprain of right shoulder joint, initial encounter; M62.511 Muscle wasting and atrophy, not elsewhere classified, right shoulder ==

== ENCOUNTER 2023-06-12 11:31 | Outpatient (CLI) | payer MEDICARE, MEDICAID | END 2023-06-12 11:32 | disposition home or self-care (01) | LOC: SCSMRI 11:31 | PROVIDERS: ATTEND Neurological Surgery | DX: M21.371 Foot drop, right foot (principal); M62.81 Muscle weakness (generalized); M47.814 Spondylosis without myelopathy or radiculopathy, thoracic region; R90.82 White matter disease, unspecified | CPT/HCPCS: 70551; 72146 ==

== ENCOUNTER 2023-09-16 11:35 | Outpatient (CLI) | payer MEDICARE, MEDICAID ==
[2023-09-16 15:21] LABS: #Basophils 0.1 10x3/uL (0.0-0.2); #Eosinphils 0.3 10x3/uL (0.0-0.5); #Monocytes 0.5 10x3/uL (0.0-1.1); #Neutrophils 6.3 10x3/uL (1.5-8.4); %Basophils 0.9 % (0.0-2.0); %Eosinophils 2.7 % (0.0-6.0); %Lymphocytes 23.9 % (18.0-47.0); %Neutrophils 66.7 % (40.0-75.0); Hematocrit 33.6 % (34.9-44.5); Hemoglobin 11.5 g/dL (12.0-15.5); Mean Corpuscular HGB CONC 34.2 g/dL (32.0-36.0); Mean Corpuscular Hemoglobin 31.4 pg (27.0-33.0); Mean Corpuscular Volume 91.8 fl (81.6-98.3); Mean Platelet Volume 9.9 fl (7.4-10.4); Platelet Count 294 10x3/uL (150-450); RBC Distribution Width 12.7 % (11.5-14.5); Red Blood Cell (RBC) Count 3.66 10x6/uL (3.90-5.03); White Blood Cell (WBC) Count 9.5 10x3/uL (3.5-10.5)
[2023-09-16 15:30] LABS: ALT (SGPT) 12 U/L (8-55); AST (SGOT) 14 U/L (5-34); Albumin 4.1 g/dL (3.4-4.8); Alkaline Phosphatase 60 U/L (40-110); Anion Gap 17 mmol/L (10-20); BUN (Urea Nitrogen) 46 mg/dL (9.8-20.1); Bilirubin, Total 0.4 mg/dL (0.2-1.2); Calc. Creatinine Clearance 0 mL/min (70-130); Calcium 9.2 mg/dL (7.8-10.44); Carbon Dioxide 21 mmol/L (23-31); Chloride 103 mmol/L (98-107); Estimated GFR 21; Globulin 2.5 g/dL (2.4-3.5); Glucose 162 mg/dL (80-115); Protein, Total 6.6 g/dL (5.8-8.1); Sodium 136 mmol/L (136-145)
== END 2023-09-16 11:36 | disposition home or self-care (01) ==
LOC: LABBT 11:35
PROVIDERS: ATTEND Internal Medicine Cardiovascular Disease
DX: Z01.812 Encounter for preprocedural laboratory examination (principal); R94.39 Abnormal result of other cardiovascular function study
CPT/HCPCS: 80053; 85025

== ENCOUNTER 2023-11-06 08:36 | Observation (INO) | payer MEDICARE, MEDICAID ==
[2023-11-06] MEDS: Sodium Chloride 0.9% 1,000 ML IV SCH ×2 (11:37→21:47)
[2023-11-06 11:38] VITALS: BMI 25.2
[2023-11-06 13:20] LABS: #Basophils 0.1 thou/uL (0.0-0.2); #Eosinphils 0.2 thou/uL (0.0-0.7); #Monocytes 0.6 thou/uL (0.11-0.59); #Neutrophils 5.3 thou/uL (1.40-6.50); %Basophils 0.6 % (0.0-1.0); %Eosinophils 2.1 % (0.0-10.0); %Monocytes 7.1 % (0.0-10.0); %Neutrophils 62.5 % (42.0-75.0); Hematocrit 34.6 % (36.0-47.0); Hemoglobin 11.4 g/dL (12.0-16.0); Mean Corpuscular HGB CONC 32.9 g/dL (32.0-36.0); Mean Corpuscular Hemoglobin 30.6 pg (27.0-31.0); Mean Corpuscular Volume 92.8 fl (78.0-98.0); Platelet Count 259 10x3/uL (130-400); RBC Distribution Width 13.1 % (11.5-14.5); Red Blood Cell (RBC) Count 3.73 mill/uL (4.20-5.40); White Blood Cell (WBC) Count 8.4 10x3/uL (4.8-10.8)
[2023-11-06 13:45] LABS: ALT (SGPT) 13 U/L (8-55); AST (SGOT) 17 U/L (5-34); Albumin 3.8 g/dL (3.4-4.8); Alkaline Phosphatase 49 U/L (40-110); Anion Gap 12 mmol/L (10-20); BUN (Urea Nitrogen) 35 mg/dL (9.8-20.1); Bilirubin, Total 0.4 mg/dL (0.2-1.2); Calc. Creatinine Clearance 26 mL/min (70-130); Calcium 9.2 mg/dL (7.8-10.44); Carbon Dioxide 23 mmol/L (23-31); Chloride 105 mmol/L (98-107); Estimated GFR 27; Globulin 2.8 g/dL (2.4-3.5); Glucose 104 mg/dL (80-115); Potassium 4.3 mmol/L (3.5-5.1); Protein, Total 6.6 g/dL (5.8-8.1); Sodium 136 mmol/L (136-145)
[2023-11-06] MEDS: Amlodipine 5 MG TAB PO SCH (20:48)
[2023-11-06] MEDS: Atorvastatin Calcium 20 MG TAB PO SCH (20:49)
[2023-11-06] MEDS: Metoprolol Tartrate 25 MG TAB PO SCH (21:06)
[2023-11-06] MEDS: Citalopram 20 MG TAB PO SCH (21:06)
[2023-11-07] MEDS: Citalopram 20 MG TAB PO SCH ×2 (07:18→19:55)
[2023-11-07] MEDS ORDERED: fentaNYL 50 mcg/mL 1 mL Vial ONE (07:47)
[2023-11-07] MEDS ORDERED: Midazolam HCl 2 mg/2 ml Vial ONE (07:47)
[2023-11-07] MEDS ORDERED: Adenosine 6 mg (2 mL) VIAL ONE (07:47)
[2023-11-07] MEDS ORDERED: Verapamil 5 MG/2 ML VIAL ONE (07:47)
[2023-11-07] MEDS ORDERED: Nitroglycerin 50 MG/250 ML BOT 250 ML ONE (07:48)
[2023-11-07] MEDS ORDERED: Heparin 10,000 UNITS/ 10 ML VIAL ONE (07:48)
[2023-11-07] MEDS: Sodium Chloride 0.9% 1,000 ML IV SCH (07:53)
[2023-11-07] MEDS ORDERED: Calcitriol 0.25 MCG CAP PO SCH (09:00)
[2023-11-07] MEDS ORDERED: Metoprolol Tartrate 100 MG TAB PO SCH (09:00)
[2023-11-07] MEDS ORDERED: Acetaminophen/Codeine 30-300mg Tablet PO PRN ×2 (09:16)
[2023-11-07] MEDS ORDERED: Sodium Chloride 0.9% 200 ML IV PRN (09:16)
[2023-11-07] MEDS ORDERED: Sodium Chloride 0.9% 1,000 ML IV SCH (09:30)
[2023-11-07] MEDS ORDERED: cloNIDine 0.1 MG TAB PO PRN (11:31)
[2023-11-07] MEDS ORDERED: Iopamidol 370 76% 100 ML VIAL ONE (11:39)
[2023-11-07] MEDS ORDERED: hydrALAZINE 20 MG/ML VIAL SLOW IVP SCH (12:15)
[2023-11-07] MEDS: Metoprolol Tartrate 25 MG TAB PO SCH (19:54)
[2023-11-07] MEDS: Amlodipine 5 MG TAB PO SCH (19:55)
[2023-11-07] MEDS: Atorvastatin Calcium 20 MG TAB PO SCH (19:55)
[2023-11-07 19:57] VITALS: BP 176/79
[2023-11-07 20:02] VITALS: TEMP 97.8
== END 2023-11-07 20:00 | disposition home or self-care (01) ==
LOC: 2NO 10:13
PROVIDERS: ADMIT Internal Medicine Cardiovascular Disease; ATTEND Internal Medicine Cardiovascular Disease
PROC: 4A023N7 Measurement of Cardiac Sampling and Pressure, Left Heart, Percutaneous Approach (ICD-10-PCS; principal; 2023-11-07)
PROC: B200YZZ Plain Radiography of Single Coronary Artery using Other Contrast (ICD-10-PCS; 2023-11-07)
DX: I25.10 Atherosclerotic heart disease of native coronary artery without angina pectoris (principal); J44.9 Chronic obstructive pulmonary disease, unspecified; I12.9 Hypertensive chronic kidney disease with stage 1 through stage 4 chronic kidney disease, or unspecified chronic kidney disease; N18.9 Chronic kidney disease, unspecified; M10.9 Gout, unspecified; E78.5 Hyperlipidemia, unspecified; I73.9 Peripheral vascular disease, unspecified; I35.1 Nonrheumatic aortic (valve) insufficiency; I34.0 Nonrheumatic mitral (valve) insufficiency; Z90.89 Acquired absence of other organs; Z90.710 Acquired absence of both cervix and uterus; Z96.652 Presence of left artificial knee joint; Z90.5 Acquired absence of kidney; Z79.899 Other long term (current) drug therapy; Z88.8 Allergy status to other drugs, medicaments and biological substances; Z88.0 Allergy status to penicillin
CPT/HCPCS: 80053; 85025; 93458; J0360; J3010; 36415; C1769; C1894; G0378; J0153; J1644; J2250; J7050; Q9967

== ENCOUNTER 2024-07-26 11:30 | Inpatient (IN) | payer MEDICARE, MEDICAID ==
[2024-07-26 14:15] LABS: #Basophils 0.06 10x3/uL (0.0-0.2); %Basophils 0.7 % (0.0-1.0); %Eosinophils 2.6 % (0.0-10.0); %Lymphocytes 35.2 % (21.0-51.0); %Monocytes 9.2 % (0.0-10.0); %Neutrophils 51.8 % (42.0-75.0); Hemoglobin 11.7 g/dL (12.0-16.0); Mean Corpuscular HGB CONC 32.5 g/dL (32.0-36.0); Mean Corpuscular Hemoglobin 30.8 pg (27.0-31.0); Mean Corpuscular Volume 94.7 fL (78.0-98.0); Mean Platelet Volume 10.4 fL (7.4-10.4); Platelet Count 244 10x3/uL (130-400); RBC Distribution Width 12.7 % (11.5-14.5)
[2024-07-26 14:29] LABS: PTT 28.5 sec (22.9-36.1); Prothrombin Time 12.9 sec (12.0-14.7)
[2024-07-26 14:37] LABS: ALT (SGPT) 17 U/L (8-55); AST (SGOT) 17 U/L (5-34); Albumin 3.6 g/dL (3.4-4.8); Alkaline Phosphatase 49 U/L (40-110); Anion Gap 13 mmol/L (10-20); BUN (Urea Nitrogen) 39 mg/dL (9.8-20.1); Bilirubin, Direct 0.1 mg/dL (0.1-0.3); Bilirubin, Total 0.4 mg/dL (0.2-1.2); Calc. Creatinine Clearance 0 mL/min (70-130); Calcium 9.6 mg/dL (7.8-10.44); Carbon Dioxide 24 mmol/L (23-31); Chloride 101 mmol/L (98-107); Estimated GFR 21; Glucose 78 mg/dL (80-115); Potassium 5.3 mmol/L (3.5-5.1); Protein, Total 6.8 g/dL (5.8-8.1); Sodium 133 mmol/L (136-145)
[2024-07-28] MEDS ORDERED: Bupivacaine PF 0.5% 30 ML VIAL ONE (06:38)
[2024-07-28] MEDS ORDERED: Dexamethasone 4 mg/ml Vial ONE (06:38)
[2024-07-28] MEDS ORDERED: EPINEPHrine 1 MG/ML VIAL ONE (06:38)
[2024-07-28] MEDS ORDERED: PHENYLEPHRINE-NS 100 MCG/ML 10 ML SYRINGE ONE (06:38)
[2024-07-28] MEDS ORDERED: Albumin 5% 500 ML ONE (06:38)
[2024-07-28] MEDS ORDERED: Heparin 10,000 UNITS/1 ML VIAL 30,000 UNITS in Sodium Chloride 0.9% 1,000 ML FS SCH (06:45)
[2024-07-28] MEDS ORDERED: PROPOFOL 20 ML ONE (06:47)
[2024-07-28] MEDS ORDERED: fentaNYL PF 100 MCG/2 ML SYRINGE ONE ×2 (06:47→10:48)
[2024-07-28] MEDS ORDERED: Vecuronium 10 MG VIAL ONE (06:47)
[2024-07-28] MEDS ORDERED: Midazolam HCl 2 mg/2 ml Vial ONE (06:48)
[2024-07-28] MEDS ORDERED: Dexamethasone 20 MG/5 ML VIAL ONE (06:48)
[2024-07-28] MEDS ORDERED: Ondansetron PF 4 MG/2 ML Vial ONE (06:48)
[2024-07-28] MEDS ORDERED: Lidocaine 2% PF 5 ML VIAL ONE (06:49)
[2024-07-28] MEDS ORDERED: NOREPINEPHRINE 8 MG/250 ML-D5W 250 ML ONE (06:51)
[2024-07-28] MEDS ORDERED: Ondansetron ODT 4 MG TAB ONE (07:00)
[2024-07-28] MEDS ORDERED: Clindamycin/D5W 900 mg/50 ml Premix Bag ONE (07:17)
[2024-07-28] MEDS ORDERED: Heparin 5,000 UNITS/ML VIAL ONE (08:04)
[2024-07-28] MEDS ORDERED: Lidocaine 2% PF 100 mg/5 ml Syringe ONE (08:04)
[2024-07-28] MEDS ORDERED: Calcium Chloride 1 GM/10 ML Abboject SYRINGE ONE (08:04)
[2024-07-28] MEDS ORDERED: Potassium Chloride 60 mEq (30 mL) VIAL ONE (08:04)
[2024-07-28] MEDS ORDERED: Mannitol 12.5 GM/50 ML ONE (08:04)
[2024-07-28] MEDS ORDERED: Sodium Bicarb 50 mEq/50 ML VIAL ONE (08:04)
[2024-07-28] MEDS ORDERED: Heparin 30,000 units/30 ml VIAL ONE (08:04)
[2024-07-28] MEDS ORDERED: Cardioplegic Soln 1,000 ML BAG ONE (08:04)
[2024-07-28] MEDS ORDERED: Aminocaproic Acid 5 GM/20 ML VIAL ONE (08:04)
[2024-07-28] MEDS ORDERED: Thrombin 5000 UNITS/5 ML VIAL ONE (08:04)
[2024-07-28] MEDS ORDERED: Nitroglycerin 50 MG/250 ML BOT ONE (08:04)
[2024-07-28] MEDS ORDERED: Papaverine 60 MG/2 ML VIAL ONE (08:04)
[2024-07-28] MEDS ORDERED: Vancomycin 1 GM VIAL ONE (08:04)
[2024-07-28] MEDS ORDERED: Magnesium 5 GM/10 ML VIAL ONE (08:04)
[2024-07-28] MEDS ORDERED: Protamine Sulfate 250 MG/25 ML VIAL ONE (08:04)
[2024-07-28] MEDS ORDERED: Isoflurane INH ANEST 250 ML BOTTLE ONE (08:28)
[2024-07-28] MEDS ORDERED: Rocuronium Bromide 10 MG/ML (10ML VIAL) ONE (09:09)
[2024-07-28] MEDS ORDERED: Insulin Regular, Human 100 UNIT/ML 10 ML VIAL ONE (10:12)
[2024-07-28] MEDS ORDERED: Dextrose 50% Abboject 50 ML SYRINGE ONE ×2 (10:15→10:25)
[2024-07-28] MEDS ORDERED: Furosemide 20 MG (2 mL) VIAL ONE (10:33)
[2024-07-28] MEDS ORDERED: Albumin 5% 12.5 GM (250 mL) BOT IVPB PRN (12:14)
[2024-07-28] MEDS ORDERED: Bisacodyl 5 MG TAB PO PRN (12:14)
[2024-07-28] MEDS ORDERED: fentaNYL 50 mcg/mL 1 mL Vial SLOW IVP PRN (12:14)
[2024-07-28] MEDS ORDERED: Bisacodyl 10 MG SUPP PR PRN (12:14)
[2024-07-28] MEDS ORDERED: Acetaminophen 325 MG TAB PO PRN (12:14)
[2024-07-28] MEDS ORDERED: Mag-Al 1200 mg/1200 mg/30 ML UDCUP PO PRN (12:14)
[2024-07-28] MEDS ORDERED: Morphine 2 MG/ML VIAL SLOW IVP PRN (12:14)
[2024-07-28] MEDS ORDERED: NOREPINEPHRINE 8 MG/250 ML-D5W 250 ML IVPB PRN (12:14)
[2024-07-28] MEDS ORDERED: Promethazine HCl 25 MG/ML VIAL IM PRN (12:14)
[2024-07-28] MEDS: Nitroglycerin 50 MG/250 ML BOT 250 ML IVPB PRN (12:35)
[2024-07-28] MEDS ORDERED: Dextrose 5% in Water 1,000 ML IV PRN (12:45)
[2024-07-28] MEDS ORDERED: INSULIN REGULAR IN 0.9 % NACL 100 UNITS in Premix 1 BAG IVPB SCH (12:45)
[2024-07-28] MEDS ORDERED: Glucagon 1 MG/ML KIT SC PRN (12:45)
[2024-07-28] MEDS ORDERED: Phenylephrine 40 MG/NS 250 ML 40 MG in Premix 1 BAG IVPB PRN (12:45)
[2024-07-28] MEDS ORDERED: Dextrose 50% Abboject 50 ML SYRINGE SLOW IVP PRN (12:45)
[2024-07-28 12:49] LABS: Base Excess (BEa) -5.1 mEq/L (-2.0 to +3.0); CO2 Tension 32.2 mmHg (35.0-45.0); Calcium, Ionized (arterial) 1.19 mmol/L (1.12-1.30); Carboxyhemoglobin (COHb) 0.2 gm% (0.0-3.0); Hematocrit-ABG 34 % (36.0-47.0); Hemoglobin (Hb) 11.5 g/dL (12.0-16.0); O2 Tension (PaO2), arterial 179.3 mmHg (> 70.0); Potassium - ABG Lab 4.76 mmol/L (3.70-5.30); pH, Arterial 7.389 (7.35-7.45)
[2024-07-28 12:50] LABS: Puncture Site Arterial Line
[2024-07-28] MEDS: niCARdipine 25 MG in Sodium Chloride 0.9% 250 ML 250 ML IVPB PRN (12:50)
[2024-07-28 12:55] LABS: #Basophils 0.05 10x3/uL (0.0-0.2); %Basophils 0.4 % (0.0-1.0); %Eosinophils 0.6 % (0.0-10.0); %Lymphocytes 12.8 % (21.0-51.0); %Monocytes 8.3 % (0.0-10.0); %Neutrophils 76.8 % (42.0-75.0); Hematocrit 31.9 % (36.0-47.0); Mean Corpuscular HGB CONC 34.5 g/dL (32.0-36.0); Mean Corpuscular Hemoglobin 31.3 pg (27.0-31.0); Mean Corpuscular Volume 90.9 fL (78.0-98.0); Mean Platelet Volume 10.6 fL (7.4-10.4); Platelet Count 121 10x3/uL (130-400); RBC Distribution Width 13.2 % (11.5-14.5); Red Blood Cell (RBC) Count 3.51 mill/uL (4.20-5.40)
[2024-07-28 13:15] LABS: Anion Gap 11 mmol/L (10-20); BUN (Urea Nitrogen) 34 mg/dL (9.8-20.1); Calc. Creatinine Clearance 0 mL/min (70-130); Calcium 8.2 mg/dL (7.8-10.44); Carbon Dioxide 19 mmol/L (23-31); Chloride 112 mmol/L (98-107); Estimated GFR 25; Glucose 98 mg/dL (80-115); Sodium 137 mmol/L (136-145)
[2024-07-28 13:16] LABS: INR-International Normal Ratio 1.3; PTT 38.2 sec (22.9-36.1); Prothrombin Time 16.6 sec (12.0-14.7)
[2024-07-28] MEDS: Nitroglycerin 50 MG/250 ML BOT 250 ML ONE (13:21)
[2024-07-28] MEDS: Post-Op Insulin Drip Protocol IVPB ONE (13:21)
[2024-07-28 13:22] LABS: Burr Cells SLIGHT = 2-5 cells HPF (0-1); Platelet Adequacy Comment Platelets Decreased
[2024-07-28] MEDS: Sodium Chloride 0.9% 1,000 ML IV SCH ×2 (13:23→18:24)
[2024-07-28] MEDS: Magnesium 2 GM/50 ML(in water) 2 GM in Premix 1 BAG IVPB SCH (13:24)
[2024-07-28] MEDS: Clindamycin/D5W 900 MG in Premix 1 BAG IVPB SCH (13:24)
[2024-07-28] MEDS: Ipratropium/Albuterol 3 ML NEB NEB SCH (14:56)
[2024-07-28 15:12] LABS: Actual Bicarbonate (HCO3a) 22.5 mEq/L (22-28); Analyzer IN Cardio OR; CO2 Tension 42.4 mmHg (35.0-45.0); Calcium, Ionized (arterial) 0.88 mmol/L (1.12-1.30); Carboxyhemoglobin (COHb) 0.3 gm% (0.0-3.0); Hematocrit-ABG 20 % (36.0-47.0); Hemoglobin (Hb) 6.7 g/dL (12.0-16.0); O2 Tension (PaO2), arterial 446.7 mmHg (> 70.0); pH, Arterial 7.342 (7.35-7.45)
[2024-07-28 15:12] LABS: Actual Bicarbonate (HCO3a) 20.1 mEq/L (22-28); Analyzer IN Cardio OR; Base Excess (BEa) -5.6 mEq/L (-2.0 to +3.0); CO2 Tension 40.3 mmHg (35.0-45.0); Calcium, Ionized (arterial) 1.06 mmol/L (1.12-1.30); Carboxyhemoglobin (COHb) 0.3 gm% (0.0-3.0); Hematocrit-ABG 31 % (36.0-47.0); Hemoglobin (Hb) 10.4 g/dL (12.0-16.0); Potassium - ABG Lab 4.54 mmol/L (3.70-5.30); pH, Arterial 7.316 (7.35-7.45)
[2024-07-28 15:12] LABS: Actual Bicarbonate (HCO3a) 23.5 mEq/L (22-28); Analyzer IN Cardio OR; Base Excess (BEa) 0.3 mEq/L (-2.0 to +3.0); CO2 Tension 30.8 mmHg (35.0-45.0); Calcium, Ionized (arterial) 1.05 mmol/L (1.12-1.30); Carboxyhemoglobin (COHb) 0.1 gm% (0.0-3.0); Hematocrit-ABG 19 % (36.0-47.0); Hemoglobin (Hb) 6.5 g/dL (12.0-16.0); O2 Tension (PaO2), arterial 503.3 mmHg (> 70.0)
[2024-07-28 15:12] LABS: Actual Bicarbonate (HCO3a) 23.4 mEq/L (22-28); Analyzer IN Cardio OR; Base Excess (BEa) -1.8 mEq/L (-2.0 to +3.0); CO2 Tension 41.5 mmHg (35.0-45.0); Calcium, Ionized (arterial) 0.91 mmol/L (1.12-1.30); Carboxyhemoglobin (COHb) 0.2 gm% (0.0-3.0); Hematocrit-ABG 19 % (36.0-47.0); Hemoglobin (Hb) 6.5 g/dL (12.0-16.0); O2 Tension (PaO2), arterial 432.4 mmHg (> 70.0); Potassium - ABG Lab 5.89 mmol/L (3.70-5.30); pH, Arterial 7.369 (7.35-7.45)
[2024-07-28 15:12] LABS: Actual Bicarbonate (HCO3a) 20.4 mEq/L (22-28); Analyzer IN Cardio OR; Base Excess (BEa) -3.1 mEq/L (-2.0 to +3.0); CO2 Tension 31.6 mmHg (35.0-45.0); Calcium, Ionized (arterial) 1.07 mmol/L (1.12-1.30); Carboxyhemoglobin (COHb) 0.3 gm% (0.0-3.0); Hematocrit-ABG 34 % (36.0-47.0); Hemoglobin (Hb) 11.4 g/dL (12.0-16.0); O2 Tension (PaO2), arterial 326.9 mmHg (> 70.0); Potassium - ABG Lab 4.44 mmol/L (3.70-5.30); pH, Arterial 7.428 (7.35-7.45)
[2024-07-28 15:12] LABS: Actual Bicarbonate (HCO3v) 24.8 mEq/L (22-28); Analyzer IN Cardio OR; Base Excess -0.8 mEq/L (-2.0 to +3.0); Calcium, Ionized (venous) 0.91 mmol/L (1.16-1.32); Chloride (VBG) 109 mmol/L (98-106); Hematocrit-VBG 19 % (36.0-47.0); Hemoglobin (Hb) 6.6 g/dL (11.7-16.1); Sodium 133 mmol/L (133-146); pH (venous) 7.348 (7.32-7.43)
[2024-07-28 15:13] LABS: Actual Bicarbonate (HCO3a) 21.2 mEq/L (22-28); Analyzer IN Cardio OR; Base Excess (BEa) -2.2 mEq/L (-2.0 to +3.0); CO2 Tension 29.7 mmHg (35.0-45.0); Calcium, Ionized (arterial) 1.04 mmol/L (1.12-1.30); Carboxyhemoglobin (COHb) 0.1 gm% (0.0-3.0); Hematocrit-ABG 19 % (36.0-47.0); Hemoglobin (Hb) 6.5 g/dL (12.0-16.0); Potassium - ABG Lab 5.72 mmol/L (3.70-5.30); pH, Arterial 7.471 (7.35-7.45)
[2024-07-28 15:13] LABS: Puncture Site Arterial Line
[2024-07-28 15:13] LABS: Puncture Site Arterial Line
[2024-07-28 15:14] LABS: Puncture Site Arterial Line
[2024-07-28 15:15] LABS: Potassium (VBG) 6.03 mmol/L (3.70-5.30)
[2024-07-28 15:15] LABS: Puncture Site Arterial Line
[2024-07-28] MEDS: fentaNYL 50 mcg/mL 1 mL Vial SLOW IVP PRN (15:15)
[2024-07-28 15:16] LABS: Potassium - ABG Lab 6.31 mmol/L (3.70-5.30)
[2024-07-28 15:17] LABS: Puncture Site Arterial Line
[2024-07-28 15:17] LABS: Actual Bicarbonate (HCO3a) 25.1 mEq/L (22-28); Analyzer IN Cardio OR; CO2 Tension 37.3 mmHg (35.0-45.0); Calcium, Ionized (arterial) 0.93 mmol/L (1.12-1.30); Hematocrit-ABG 21 % (36.0-47.0); Hemoglobin (Hb) 7.1 g/dL (12.0-16.0); O2 Tension (PaO2), arterial 342.9 mmHg (> 70.0); Potassium - ABG Lab 5.75 mmol/L (3.70-5.30); pH, Arterial 7.446 (7.35-7.45)
[2024-07-28 15:18] LABS: Actual Bicarbonate (HCO3a) 20.4 mEq/L (22-28); Analyzer IN Cardio OR; Base Excess (BEa) -4.3 mEq/L (-2.0 to +3.0); CO2 Tension 35.2 mmHg (35.0-45.0); Calcium, Ionized (arterial) 1.24 mmol/L (1.12-1.30); Carboxyhemoglobin (COHb) 0.3 gm% (0.0-3.0); Hematocrit-ABG 22 % (36.0-47.0); Hemoglobin (Hb) 7.6 g/dL (12.0-16.0); O2 Tension (PaO2), arterial 402.3 mmHg (> 70.0); Potassium - ABG Lab 4.35 mmol/L (3.70-5.30)
[2024-07-28 15:18] LABS: Actual Bicarbonate (HCO3a) 22.7 mEq/L (22-28); Analyzer IN Cardio OR; CO2 Tension 32.9 mmHg (35.0-45.0); Calcium, Ionized (arterial) 0.97 mmol/L (1.12-1.30); Hematocrit-ABG 21 % (36.0-47.0); Hemoglobin (Hb) 7.3 g/dL (12.0-16.0); O2 Tension (PaO2), arterial 342.6 mmHg (> 70.0); Potassium - ABG Lab 5.12 mmol/L (3.70-5.30); pH, Arterial 7.456 (7.35-7.45)
[2024-07-28 15:18] LABS: Puncture Site Arterial Line
[2024-07-28 15:18] LABS: Actual Bicarbonate (HCO3a) 20.7 mEq/L (22-28); Analyzer IN Cardio OR; Base Excess (BEa) -4.6 mEq/L (-2.0 to +3.0); CO2 Tension 38.9 mmHg (35.0-45.0); Calcium, Ionized (arterial) 1.21 mmol/L (1.12-1.30); Carboxyhemoglobin (COHb) 0.3 gm% (0.0-3.0); Hematocrit-ABG 32 % (36.0-47.0); O2 Tension (PaO2), arterial 351.1 mmHg (> 70.0); pH, Arterial 7.344 (7.35-7.45)
[2024-07-28 15:19] LABS: Puncture Site Arterial Line
[2024-07-28 15:19] LABS: Puncture Site Arterial Line
[2024-07-28 15:19] LABS: Puncture Site Arterial Line
[2024-07-28 16:02] LABS: Hemoglobin A1c 5.2 % (4.0-6.0)
[2024-07-28 16:05] LABS: Cardiac Risk 4.9 (Less than 4.5)
[2024-07-28] MEDS: Insulin Regular, Human 100 UNIT/ML 10 ML VIAL SC PRN (16:40)
[2024-07-28 18:50] LABS: Hematocrit 35.9 % (36.0-47.0); Hemoglobin 12.3 g/dL (12.0-16.0)
[2024-07-28 19:03] LABS: Potassium 4.6 mmol/L (3.5-5.1)
[2024-07-28] MEDS: Famotidine/PF 20 mg/2ml Vial SLOW IVP SCH (20:37)
[2024-07-28] MEDS: Atorvastatin Calcium 20 MG TAB PO SCH (23:21)
[2024-07-28] MEDS: Citalopram 20 MG TAB PO SCH (23:21)
[2024-07-29] MEDS: Albumin 5% 12.5 GM (250 mL) BOT IVPB PRN (01:27)
[2024-07-29] MEDS: hydrALAZINE 20 MG/ML VIAL SLOW IVP PRN (04:08)
[2024-07-29 04:41] LABS: #Basophils Less than 0.03 10x3/uL (0.0-0.2); #Eosinophils Less than 0.03 10x3/uL (0.0-0.7); %Basophils 0.1 % (0.0-1.0); %Lymphocytes 4.4 % (21.0-51.0); %Monocytes 7.7 % (0.0-10.0); %Neutrophils 87.2 % (42.0-75.0); Hematocrit 30.1 % (36.0-47.0); Hemoglobin 9.9 g/dL (12.0-16.0); Mean Corpuscular HGB CONC 32.9 g/dL (32.0-36.0); Mean Corpuscular Hemoglobin 30.6 pg (27.0-31.0); Mean Corpuscular Volume 92.9 fL (78.0-98.0); Mean Platelet Volume 11.1 fL (7.4-10.4); Platelet Count 127 10x3/uL (130-400); RBC Distribution Width 14.2 % (11.5-14.5); Red Blood Cell (RBC) Count 3.24 mill/uL (4.20-5.40)
[2024-07-29 05:00] LABS: Anion Gap 18 mmol/L (10-20); BUN (Urea Nitrogen) 41 mg/dL (9.8-20.1); Calc. Creatinine Clearance 20 mL/min (70-130); Calcium 8.2 mg/dL (7.8-10.44); Carbon Dioxide 16 mmol/L (23-31); Chloride 112 mmol/L (98-107); Estimated GFR 18; Glucose 141 mg/dL (80-115); Potassium 4.5 mmol/L (3.5-5.1); Sodium 141 mmol/L (136-145)
[2024-07-29] MEDS: Ondansetron PF 4 MG/2 ML Vial IVP PRN (06:01)
[2024-07-29 06:54] LABS: Actual Bicarbonate (HCO3a) 15.4 mEq/L (22-28); Base Excess (BEa) -9.3 mEq/L (-2.0 to +3.0); CO2 Tension 29.9 mmHg (35.0-45.0); Calcium, Ionized (arterial) 1.07 mmol/L (1.12-1.30); Carboxyhemoglobin (COHb) 0.1 gm% (0.0-3.0); Hematocrit-ABG 32 % (36.0-47.0); Hemoglobin (Hb) 10.9 g/dL (12.0-16.0); pH, Arterial 7.331 (7.35-7.45)
[2024-07-29] MEDS: Sodium Bicarb 50 mEq/50 ML VIAL IVP SCH (06:55)
[2024-07-29 06:56] LABS: Puncture Site Arterial Line
[2024-07-29 06:57] LABS: ALV-art Gradient 117.175 mmHg (0-20)
[2024-07-29] MEDS: Sodium Bicarb 50 MEQ/50 ML Abboject 8.4% SYRINGE ONE (07:42)
[2024-07-29] MEDS: Lidocaine 4% Patch TD SCH (08:58)
[2024-07-29] MEDS: Aspirin Chewable 81 MG TAB PO SCH (08:58)
[2024-07-29] MEDS: FLU (Fluad Triv) TS24-25 (65UP)/MF59C/PF 45 MCG/0.5 ML Syringe IM ONE (08:58)
[2024-07-29] MEDS: Sodium Chloride 0.9% 1,000 ML IV SCH (09:02)
[2024-07-29] MEDS: Albumin 25% 25 GM (100 mL) BOT IVPB SCH (11:44)
[2024-07-29] MEDS ORDERED: Insulin Glargine 30 UNITS/0.3 ML VIAL SC PRN (12:34)
[2024-07-29] MEDS: Famotidine/PF 20 mg/2ml Vial SLOW IVP SCH (20:02)
[2024-07-29] MEDS: Atorvastatin Calcium 40 MG TAB PO SCH (20:02)
[2024-07-29] MEDS: HYDROcodone/Acetaminophen 5/325 mg Tablet PO PRN (20:03)
[2024-07-29] MEDS: Guaifenesin DM 100-10/5 ML UDCUP PO PRN (20:10)
[2024-07-29] MEDS: Transdermal Patch Removal TOP SCH (20:10)
[2024-07-30] MEDS: Amiodarone 450 MG in Dextrose 5% in Water 250 ML IVPB SCH (00:44)
[2024-07-30] MEDS: Amiodarone 150 MG, Admixture Fee 1 EACH in Dextrose 5% in Water 100 ML IVPB SCH (00:44)
[2024-07-30 04:56] LABS: Anion Gap 14 mmol/L (10-20); BUN (Urea Nitrogen) 38 mg/dL (9.8-20.1); Calc. Creatinine Clearance 19 mL/min (70-130); Carbon Dioxide 22 mmol/L (23-31); Chloride 105 mmol/L (98-107); Estimated GFR 22; Glucose 143 mg/dL (80-115); Potassium 3.5 mmol/L (3.5-5.1); Sodium 137 mmol/L (136-145)
[2024-07-30 04:58] LABS: #Basophils Less than 0.03 10x3/uL (0.0-0.2); #Eosinophils Less than 0.03 10x3/uL (0.0-0.7); %Lymphocytes 11.6 % (21.0-51.0); %Monocytes 9.8 % (0.0-10.0); Hematocrit 24.4 % (36.0-47.0); Hemoglobin 8.1 g/dL (12.0-16.0); Mean Corpuscular HGB CONC 33.2 g/dL (32.0-36.0); Mean Corpuscular Hemoglobin 30.8 pg (27.0-31.0); Mean Corpuscular Volume 92.8 fL (78.0-98.0); Mean Platelet Volume 10.9 fL (7.4-10.4); Platelet Count 100 10x3/uL (130-400); RBC Distribution Width 14.5 % (11.5-14.5); Red Blood Cell (RBC) Count 2.63 mill/uL (4.20-5.40)
[2024-07-30 07:44] LABS: Magnesium 2.3 mg/dL (1.6-2.6); Phosphorus 3.9 mg/dL (2.3-4.7)
[2024-07-30] MEDS ORDERED: Metoprolol Tartrate 50 MG TAB PO SCH (09:00)
[2024-07-30] MEDS: Metoprolol Tartrate 100 MG TAB PO SCH (09:13)
[2024-07-30] MEDS: Albumin 25% 25 GM (100 mL) BOT IVPB SCH (11:22)
[2024-07-30] MEDS: Famotidine/PF 20 mg/2ml Vial SLOW IVP SCH (20:24)
[2024-07-30] MEDS: Metoprolol Tartrate 25 MG TAB PO SCH (20:24)
[2024-07-31 04:44] LABS: #Basophils Less than 0.03 10x3/uL (0.0-0.2); #Eosinophils Less than 0.03 10x3/uL (0.0-0.7); %Basophils 0.2 % (0.0-1.0); %Lymphocytes 13.6 % (21.0-51.0); %Monocytes 8.6 % (0.0-10.0); %Neutrophils 76.5 % (42.0-75.0); Mean Corpuscular HGB CONC 33.3 g/dL (32.0-36.0); Mean Corpuscular Hemoglobin 30.8 pg (27.0-31.0); Mean Corpuscular Volume 92.3 fL (78.0-98.0); Mean Platelet Volume 11.6 fL (7.4-10.4); Platelet Count 102 10x3/uL (130-400); RBC Distribution Width 14.8 % (11.5-14.5)
[2024-07-31 04:59] LABS: Phosphorus 4.4 mg/dL (2.3-4.7)
[2024-07-31 05:02] LABS: Anion Gap 13 mmol/L (10-20); BUN (Urea Nitrogen) 40 mg/dL (9.8-20.1); Calc. Creatinine Clearance 20 mL/min (70-130); Calcium 8.3 mg/dL (7.8-10.44); Carbon Dioxide 19 mmol/L (23-31); Chloride 106 mmol/L (98-107); Estimated GFR 20; Glucose 114 mg/dL (80-115); Magnesium 2.4 mg/dL (1.6-2.6); Potassium 4.1 mmol/L (3.5-5.1); Sodium 134 mmol/L (136-145)
[2024-07-31] MEDS: Furosemide 40 MG (4 mL) VIAL SLOW IVP SCH (09:31)
[2024-07-31] MEDS: HYDROcodone/Acetaminophen 5/325 mg Tablet PO PRN (09:41)
[2024-07-31] MEDS: Albumin 25% 25 GM (100 mL) BOT IVPB SCH (13:05)
[2024-07-31] MEDS: Amiodarone 200 MG TAB PO SCH (20:17)
[2024-08-01] MEDS: niCARdipine 25 MG in Sodium Chloride 0.9% 250 ML 250 ML IVPB SCH (01:42)
[2024-08-01 07:08] LABS: #Basophils Less than 0.03 10x3/uL (0.0-0.2); #Eosinophils Less than 0.03 10x3/uL (0.0-0.7); %Basophils 0.1 % (0.0-1.0); %Lymphocytes 9.5 % (21.0-51.0); %Monocytes 9.4 % (0.0-10.0); %Neutrophils 79.3 % (42.0-75.0); Hematocrit 21.4 % (36.0-47.0); Hemoglobin 6.9 g/dL (12.0-16.0); Mean Corpuscular HGB CONC 32.2 g/dL (32.0-36.0); Mean Corpuscular Hemoglobin 30.7 pg (27.0-31.0); Mean Corpuscular Volume 95.1 fL (78.0-98.0); Mean Platelet Volume 11.5 fL (7.4-10.4); Platelet Count 70 10x3/uL (130-400); RBC Distribution Width 14.5 % (11.5-14.5); Red Blood Cell (RBC) Count 2.25 mill/uL (4.20-5.40)
[2024-08-01 07:51] LABS: Magnesium 2.6 mg/dL (1.6-2.6)
[2024-08-01 08:29] LABS: ALT (SGPT) 2717 U/L (8-55); AST (SGOT) 3185 U/L (5-34); Albumin 5.3 g/dL (3.4-4.8); Alkaline Phosphatase 251 U/L (40-110); Anion Gap 18 mmol/L (10-20); BUN (Urea Nitrogen) 64 mg/dL (9.8-20.1); Calc. Creatinine Clearance 16 mL/min (70-130); Carbon Dioxide 17 mmol/L (23-31); Chloride 102 mmol/L (98-107); Estimated GFR 16; Glucose 86 mg/dL (80-115); Phosphorus 5.9 mg/dL (2.3-4.7); Potassium 4.7 mmol/L (3.5-5.1); Protein, Total 6.3 g/dL (5.8-8.1); Sodium 132 mmol/L (136-145)
[2024-08-01] MEDS ORDERED: Sodium Chloride 0.9% 1,000 ML IV SCH (09:30)
[2024-08-01] MEDS: Furosemide 40 MG (4 mL) VIAL ONE (11:06)
[2024-08-01] MEDS: Furosemide 40 MG (4 mL) VIAL SLOW IVP SCH (11:29)
[2024-08-01] MEDS: Sodium Chloride 0.9% 1,000 ML IV SCH (12:38)
[2024-08-01 16:57] LABS: Pleural Fluid, Protein 2.8 g/dL
[2024-08-01 17:31] LABS: RBC Count-Automated (BF) 34612 /cu.mm; WBC/Nucleated-Auto (BF) 350 /cu.mm
[2024-08-01 18:24] LABS: BF Color Red; Body Fluid Source Thoracentesis Fluid; Clarity Cloudy/Turbid (Clear); Tube # EDTA
[2024-08-01 18:30] LABS: BF Segmented Neutrophils 65 %; Cell Count Non Hematic 21 %; Lymphocytes 14 %
[2024-08-01 20:50] LABS: Hematocrit 28.3 % (36.0-47.0); Hemoglobin 9.6 g/dL (12.0-16.0)
[2024-08-02] MEDS ORDERED: hydrALAZINE 20 MG/ML VIAL SLOW IVP PRN (00:08)
[2024-08-02] MEDS: hydrALAZINE 20 MG/ML VIAL SLOW IVP PRN (00:24)
[2024-08-02 06:18] LABS: Anion Gap 15 mmol/L (10-20); BUN (Urea Nitrogen) 74 mg/dL (9.8-20.1); Calc. Creatinine Clearance 18 mL/min (70-130); Calcium 8.4 mg/dL (7.8-10.44); Carbon Dioxide 17 mmol/L (23-31); Chloride 104 mmol/L (98-107); Estimated GFR 16; Glucose 100 mg/dL (80-115); Magnesium 2.2 mg/dL (1.6-2.6); Sodium 132 mmol/L (136-145)
[2024-08-02 06:22] LABS: ALT (SGPT) 2192 U/L (8-55); AST (SGOT) 1314 U/L (5-34); Albumin 4.4 g/dL (3.4-4.8); Alkaline Phosphatase 475 U/L (40-110); Anion Gap 13 mmol/L (10-20); BUN (Urea Nitrogen) 75 mg/dL (9.8-20.1); Bilirubin, Total 2.7 mg/dL (0.2-1.2); Calc. Creatinine Clearance 18 mL/min (70-130); Calcium 8.4 mg/dL (7.8-10.44); Carbon Dioxide 18 mmol/L (23-31); Chloride 104 mmol/L (98-107); Estimated GFR 16; Globulin 1.2 g/dL (2.4-3.5); Glucose 100 mg/dL (80-115); Potassium 3.9 mmol/L (3.5-5.1); Protein, Total 5.6 g/dL (5.8-8.1); Sodium 131 mmol/L (136-145)
[2024-08-02 06:26] LABS: Hematocrit 29.6 % (36.0-47.0); Hemoglobin 10.1 g/dL (12.0-16.0); Mean Corpuscular HGB CONC 34.1 g/dL (32.0-36.0); Mean Corpuscular Hemoglobin 29.7 pg (27.0-31.0); Mean Corpuscular Volume 87.1 fL (78.0-98.0); Mean Platelet Volume 12.1 fL (7.4-10.4); Platelet Count 50 10x3/uL (130-400); RBC Distribution Width 17.2 % (11.5-14.5)
[2024-08-02 06:38] LABS: Hep B Core IgM Index 0.08 S/CO (0-0.79); Hepatitis B Core IgM Abs NONREACTIVE S/CO (NonReactive)
[2024-08-02 06:39] LABS: HBsAg Index 0.44 S/CO (0-0.99); Hep B Surf Ag NONREACTIVE S/CO (NonReactive)
[2024-08-02 06:40] LABS: Hep A IgM AB NONREACTIVE (NonReactive); Hep A IgM S/CO 0.22 S/CO (0-0.79)
[2024-08-02] MEDS: Senokot S 8.6-50 MG TAB PO SCH (07:15)
[2024-08-02 07:16] LABS: Band 2 % (5-11); Burr Cells SLIGHT = 2-5 cells HPF (0-1); Lymphocytes 8 % (21-51); Monocytes 10 % (0-10); Myelocyte 1 % (0-0); Neutrophil 80 % (42-75); Nucleated RBC (Manual Ct) 1 % (0); Platelet Adequacy Comment Platelets Decreased; Polychromasia SLIGHT = 2-3 cells HPF (0-2); Smudge Cells 2.9 %
[2024-08-02] MEDS: Pantoprazole 40 MG VIAL IVP SCH (09:00)
[2024-08-02] MEDS: Amlodipine 5 MG TAB PO SCH ×2 (09:46→13:09)
[2024-08-02 10:34] LABS: INR-International Normal Ratio 1.7; PTT 35.4 sec (22.9-36.1); Prothrombin Time 19.7 sec (12.0-14.7)
[2024-08-02] MEDS: Minoxidil 2.5 MG TAB PO SCH (14:01)
[2024-08-02 14:06] LABS: Hep C IgG Ab NONREACTIVE S/CO (NonReactive); Hep C Index 0.14 S/CO (0-0.79)
[2024-08-02] MEDS: niCARdipine 25 MG in Sodium Chloride 0.9% 250 ML 250 ML IVPB SCH (15:45)
[2024-08-03 06:25] LABS: Hematocrit 28.2 % (36.0-47.0); Hemoglobin 9.7 g/dL (12.0-16.0); Mean Corpuscular HGB CONC 34.4 g/dL (32.0-36.0); Mean Corpuscular Volume 87.3 fL (78.0-98.0); Mean Platelet Volume 11.4 fL (7.4-10.4); Platelet Count 45 10x3/uL (130-400); RBC Distribution Width 16.7 % (11.5-14.5); Red Blood Cell (RBC) Count 3.23 mill/uL (4.20-5.40)
[2024-08-03 06:32] LABS: INR-International Normal Ratio 1.6; Prothrombin Time 18.9 sec (12.0-14.7)
[2024-08-03 06:34] LABS: Phosphorus 3.1 mg/dL (2.3-4.7)
[2024-08-03 06:35] LABS: Anion Gap 13 mmol/L (10-20); BUN (Urea Nitrogen) 71 mg/dL (9.8-20.1); Calc. Creatinine Clearance 20 mL/min (70-130); Calcium 8.3 mg/dL (7.8-10.44); Carbon Dioxide 17 mmol/L (23-31); Chloride 107 mmol/L (98-107); Estimated GFR 18; Glucose 107 mg/dL (80-115); Magnesium 2.1 mg/dL (1.6-2.6); Potassium 3.6 mmol/L (3.5-5.1); Sodium 133 mmol/L (136-145)
[2024-08-03 06:37] LABS: ALT (SGPT) 1574 U/L (8-55); AST (SGOT) 575 U/L (5-34); Albumin 3.9 g/dL (3.4-4.8); Alkaline Phosphatase 398 U/L (40-110); Bilirubin, Direct 1.2 mg/dL (0.1-0.3); Bilirubin, Total 2.1 mg/dL (0.2-1.2); Protein, Total 5.3 g/dL (5.8-8.1)
[2024-08-03] MEDS: Potassium Chloride 20 MEQ (100 mL) BAG IVPB PRN (06:41)
[2024-08-03 08:07] LABS: Band 3 % (5-11); Eosinophils 1 % (0-10); Lymphocytes 8 % (21-51); Monocytes 11 % (0-10); Neutrophil 76 % (42-75); Platelet Adequacy Comment Significant Decrease; RBC Morphology Within Normal Limits; Reactive Lymphocytes 1 % (0-10)
[2024-08-03] MEDS: Amlodipine 10 MG TAB PO SCH (08:43)
[2024-08-03] MEDS: Minoxidil 2.5 MG TAB PO SCH (08:43)
[2024-08-03] MEDS: Furosemide 40 MG (4 mL) VIAL SLOW IVP SCH (08:43)
[2024-08-03] MEDS: Sodium Chloride 0.9% 1,000 ML IV SCH (08:44)
[2024-08-03] MEDS ORDERED: Amlodipine 5 MG TAB PO SCH (09:00)
[2024-08-03 13:03] LABS: Fibrinogen 362 mg/dL (253-463)
[2024-08-03 13:04] LABS: INR-International Normal Ratio 1.5; PTT 33.3 sec (22.9-36.1); Prothrombin Time 18.2 sec (12.0-14.7)
[2024-08-03 13:12] LABS: D-Dimer Test 12.68 mcg/mL (0.27-0.43)
[2024-08-03 13:35] LABS: Platelet Count 57 10x3/uL (130-400)
[2024-08-03] MEDS ORDERED: hydrALAZINE 20 MG/ML VIAL SLOW IVP PRN (19:51)
[2024-08-03] MEDS: Morphine 2 MG/ML VIAL SLOW IVP SCH (21:16)
[2024-08-04 06:31] LABS: Hematocrit 27.9 % (36.0-47.0); Hemoglobin 9.4 g/dL (12.0-16.0); Mean Corpuscular HGB CONC 33.7 g/dL (32.0-36.0); Mean Corpuscular Hemoglobin 29.9 pg (27.0-31.0); Mean Corpuscular Volume 88.9 fL (78.0-98.0); Mean Platelet Volume 13.2 fL (7.4-10.4); Platelet Count 81 10x3/uL (130-400); RBC Distribution Width 16.7 % (11.5-14.5); Red Blood Cell (RBC) Count 3.14 mill/uL (4.20-5.40)
[2024-08-04 06:42] LABS: ALT (SGPT) 1445 U/L (8-55); AST (SGOT) 483 U/L (5-34); Albumin 3.8 g/dL (3.4-4.8); Alkaline Phosphatase 318 U/L (40-110); Anion Gap 15 mmol/L (10-20); BUN (Urea Nitrogen) 70 mg/dL (9.8-20.1); Bilirubin, Total 2.2 mg/dL (0.2-1.2); Calc. Creatinine Clearance 22 mL/min (70-130); Calcium 8.5 mg/dL (7.8-10.44); Carbon Dioxide 16 mmol/L (23-31); Chloride 107 mmol/L (98-107); Estimated GFR 20; Globulin 1.7 g/dL (2.4-3.5); Glucose 98 mg/dL (80-115); Potassium 3.4 mmol/L (3.5-5.1); Protein, Total 5.5 g/dL (5.8-8.1); Sodium 135 mmol/L (136-145)
[2024-08-04 07:19] LABS: Band 1 % (5-11); Lymphocytes 11 % (21-51); Macrocytosis SLIGHT = 6-15 cells HPF (0-5); Monocytes 12 % (0-10); Neutrophil 77 % (42-75); Platelet Adequacy Comment Significant Decrease; Polychromasia SLIGHT = 2-3 cells HPF (0-2)
[2024-08-04] MEDS: Bisacodyl 5 MG TAB PO SCH (08:14)
[2024-08-04] MEDS: Furosemide 40 MG (4 mL) VIAL SLOW IVP SCH (08:18)
[2024-08-04] MEDS: Potassium Chloride 20 MEQ TAB PO SCH (08:18)
[2024-08-04] MEDS: Pantoprazole DR 40 MG TAB PO SCH (08:56)
[2024-08-04 11:21] LABS: ANA Symphony (Qualitative) Negative (Negative); ANA Symphony (Quantitative) Less than 0.1 Ratio (< 0.7 Negative); dsDNA IgG Antibody 0.8 IU/mL (<10 Negative)
[2024-08-04] MEDS: traMADol HCl 50 MG TAB PO SCH (22:33)
[2024-08-05 05:53] LABS: Hematocrit 27.6 % (36.0-47.0); Hemoglobin 9.1 g/dL (12.0-16.0); Mean Corpuscular Hemoglobin 29.9 pg (27.0-31.0); Mean Corpuscular Volume 90.8 fL (78.0-98.0); Mean Platelet Volume 11.6 fL (7.4-10.4); Platelet Count 124 10x3/uL (130-400); RBC Distribution Width 16.9 % (11.5-14.5); Red Blood Cell (RBC) Count 3.04 mill/uL (4.20-5.40)
[2024-08-05 06:19] LABS: ALT (SGPT) 1155 U/L (8-55); AST (SGOT) 292 U/L (5-34); Albumin 3.7 g/dL (3.4-4.8); Alkaline Phosphatase 266 U/L (40-110); Anion Gap 16 mmol/L (10-20); BUN (Urea Nitrogen) 72 mg/dL (9.8-20.1); Bilirubin, Total 2.2 mg/dL (0.2-1.2); Calc. Creatinine Clearance 22 mL/min (70-130); Calcium 8.9 mg/dL (7.8-10.44); Carbon Dioxide 16 mmol/L (23-31); Chloride 110 mmol/L (98-107); Estimated GFR 20; Globulin 1.9 g/dL (2.4-3.5); Glucose 95 mg/dL (80-115); Potassium 3.3 mmol/L (3.5-5.1); Protein, Total 5.6 g/dL (5.8-8.1); Sodium 139 mmol/L (136-145)
[2024-08-05 06:33] LABS: Anisocytosis SLIGHT = 6-15 cells HPF (0-5); Hypochromia SLIGHT = 6-15 cells HPF (0-5); Lymphocytes 12 % (21-51); Macrocytosis SLIGHT = 6-15 cells HPF (0-5); Monocytes 11 % (0-10); Neutrophil 78 % (42-75); Ovalocytes SLIGHT = 2-5 cells HPF (0-1); Platelet Adequacy Comment Platelets Decreased; Polychromasia SLIGHT = 2-3 cells HPF (0-2); Target Cells SLIGHT = 2-5 cells HPF (0-1)
[2024-08-05] MEDS: Potassium Chloride 20 MEQ TAB PO SCH (08:33)
[2024-08-05] MEDS: Furosemide 40 MG TAB PO SCH (08:34)
[2024-08-05 16:12] LABS: Heparin-Induced Ab (HITA) 0.118 OD (0.000-0.400)
[2024-08-06 04:33] LABS: #Basophils 0.03 10x3/uL (0.0-0.2); %Basophils 0.3 % (0.0-1.0); %Eosinophils 0.6 % (0.0-10.0); %Lymphocytes 9.6 % (21.0-51.0); %Monocytes 14.1 % (0.0-10.0); %Neutrophils 70.5 % (42.0-75.0); Hematocrit 27.7 % (36.0-47.0); Mean Corpuscular HGB CONC 32.5 g/dL (32.0-36.0); Mean Corpuscular Hemoglobin 29.9 pg (27.0-31.0); Mean Platelet Volume 11.5 fL (7.4-10.4); Platelet Count 158 10x3/uL (130-400); RBC Distribution Width 16.9 % (11.5-14.5); Red Blood Cell (RBC) Count 3.01 mill/uL (4.20-5.40)
[2024-08-06 05:11] LABS: ALT (SGPT) 839 U/L (8-55); AST (SGOT) 142 U/L (5-34); Albumin 3.7 g/dL (3.4-4.8); Alkaline Phosphatase 238 U/L (40-110); Anion Gap 18 mmol/L (10-20); BUN (Urea Nitrogen) 73 mg/dL (9.8-20.1); Bilirubin, Total 2.2 mg/dL (0.2-1.2); Calc. Creatinine Clearance 23 mL/min (70-130); Calcium 8.8 mg/dL (7.8-10.44); Carbon Dioxide 15 mmol/L (23-31); Chloride 109 mmol/L (98-107); Estimated GFR 21; Globulin 1.9 g/dL (2.4-3.5); Glucose 94 mg/dL (80-115); Potassium 3.4 mmol/L (3.5-5.1); Protein, Total 5.6 g/dL (5.8-8.1); Sodium 139 mmol/L (136-145)
[2024-08-06] MEDS: Sodium Bicarbonate Tab 325 MG TAB PO SCH ×2 (11:10→15:17)
[2024-08-07 04:22] LABS: #Basophils Less than 0.03 10x3/uL (0.0-0.2); %Basophils 0.2 % (0.0-1.0); %Eosinophils 1.1 % (0.0-10.0); %Lymphocytes 13.7 % (21.0-51.0); %Monocytes 14.2 % (0.0-10.0); %Neutrophils 66.8 % (42.0-75.0); Hematocrit 25.7 % (36.0-47.0); Hemoglobin 8.6 g/dL (12.0-16.0); Mean Corpuscular HGB CONC 33.5 g/dL (32.0-36.0); Mean Corpuscular Volume 89.5 fL (78.0-98.0); Mean Platelet Volume 11.3 fL (7.4-10.4); Platelet Count 183 10x3/uL (130-400); RBC Distribution Width 16.8 % (11.5-14.5); Red Blood Cell (RBC) Count 2.87 mill/uL (4.20-5.40)
[2024-08-07 04:46] LABS: ALT (SGPT) 560 U/L (8-55); AST (SGOT) 69 U/L (5-34); Albumin 3.5 g/dL (3.4-4.8); Alkaline Phosphatase 189 U/L (40-110); Anion Gap 15 mmol/L (10-20); BUN (Urea Nitrogen) 68 mg/dL (9.8-20.1); Bilirubin, Total 2.1 mg/dL (0.2-1.2); Calc. Creatinine Clearance 0 mL/min (70-130); Calcium 8.7 mg/dL (7.8-10.44); Carbon Dioxide 17 mmol/L (23-31); Chloride 108 mmol/L (98-107); Estimated GFR 23; Glucose 101 mg/dL (80-115); Potassium 3.1 mmol/L (3.5-5.1); Protein, Total 5.5 g/dL (5.8-8.1); Sodium 137 mmol/L (136-145)
[2024-08-07] MEDS: Potassium Chloride 20 MEQ TAB PO SCH (09:22)
[2024-08-07 21:35] VITALS: BMI 26.4
[2024-08-08 04:10] LABS: #Basophils Less than 0.03 10x3/uL (0.0-0.2); %Basophils 0.2 % (0.0-1.0); %Eosinophils 1.1 % (0.0-10.0); %Lymphocytes 13.5 % (21.0-51.0); %Monocytes 13.9 % (0.0-10.0); %Neutrophils 68.6 % (42.0-75.0); Hematocrit 25.6 % (36.0-47.0); Hemoglobin 8.5 g/dL (12.0-16.0); Mean Corpuscular HGB CONC 33.2 g/dL (32.0-36.0); Mean Corpuscular Hemoglobin 29.9 pg (27.0-31.0); Mean Corpuscular Volume 90.1 fL (78.0-98.0); Platelet Count 199 10x3/uL (130-400); RBC Distribution Width 16.8 % (11.5-14.5); Red Blood Cell (RBC) Count 2.84 mill/uL (4.20-5.40)
[2024-08-08 04:50] LABS: ALT (SGPT) 399 U/L (8-55); AST (SGOT) 53 U/L (5-34); Albumin 3.5 g/dL (3.4-4.8); Alkaline Phosphatase 179 U/L (40-110); Anion Gap 14 mmol/L (10-20); BUN (Urea Nitrogen) 62 mg/dL (9.8-20.1); Bilirubin, Total 2.1 mg/dL (0.2-1.2); Calc. Creatinine Clearance 24 mL/min (70-130); Calcium 8.5 mg/dL (7.8-10.44); Carbon Dioxide 17 mmol/L (23-31); Chloride 106 mmol/L (98-107); Estimated GFR 23; Globulin 2.2 g/dL (2.4-3.5); Glucose 94 mg/dL (80-115); Potassium 3.4 mmol/L (3.5-5.1); Protein, Total 5.7 g/dL (5.8-8.1); Sodium 134 mmol/L (136-145)
[2024-08-08] MEDS: Potassium Chloride 20 MEQ TAB PO SCH (08:52)
[2024-08-08] MEDS: Acetaminophen 325 MG TAB PO PRN (14:28)
[2024-08-08] MEDS: hydrALAZINE 25 MG TAB PO SCH (21:00)
[2024-08-09 04:59] LABS: #Basophils 0.03 10x3/uL (0.0-0.2); %Basophils 0.3 % (0.0-1.0); %Eosinophils 1.1 % (0.0-10.0); %Lymphocytes 11.3 % (21.0-51.0); %Neutrophils 73.3 % (42.0-75.0); Hematocrit 26.3 % (36.0-47.0); Hemoglobin 8.7 g/dL (12.0-16.0); Mean Corpuscular HGB CONC 33.1 g/dL (32.0-36.0); Mean Corpuscular Hemoglobin 29.7 pg (27.0-31.0); Mean Corpuscular Volume 89.8 fL (78.0-98.0); Mean Platelet Volume 11.5 fL (7.4-10.4); Platelet Count 225 10x3/uL (130-400); RBC Distribution Width 17.4 % (11.5-14.5); Red Blood Cell (RBC) Count 2.93 mill/uL (4.20-5.40)
[2024-08-09 05:14] LABS: Phosphorus 3.6 mg/dL (2.3-4.7)
[2024-08-09 05:19] LABS: ALT (SGPT) 327 U/L (8-55); AST (SGOT) 53 U/L (5-34); Albumin 3.7 g/dL (3.4-4.8); Alkaline Phosphatase 191 U/L (40-110); Anion Gap 18 mmol/L (10-20); BUN (Urea Nitrogen) 61 mg/dL (9.8-20.1); Bilirubin, Total 1.9 mg/dL (0.2-1.2); Calc. Creatinine Clearance 23 mL/min (70-130); Calcium 8.9 mg/dL (7.8-10.44); Carbon Dioxide 17 mmol/L (23-31); Chloride 106 mmol/L (98-107); Estimated GFR 22; Globulin 2.4 g/dL (2.4-3.5); Glucose 91 mg/dL (80-115); Magnesium 2.1 mg/dL (1.6-2.6); Potassium 3.8 mmol/L (3.5-5.1); Protein, Total 6.1 g/dL (5.8-8.1); Sodium 137 mmol/L (136-145)
[2024-08-10 04:29] LABS: #Basophils 0.03 10x3/uL (0.0-0.2); %Basophils 0.3 % (0.0-1.0); %Eosinophils 0.9 % (0.0-10.0); %Lymphocytes 10.2 % (21.0-51.0); %Monocytes 11.7 % (0.0-10.0); %Neutrophils 75.3 % (42.0-75.0); Hemoglobin 8.8 g/dL (12.0-16.0); Mean Corpuscular HGB CONC 32.6 g/dL (32.0-36.0); Mean Corpuscular Hemoglobin 29.3 pg (27.0-31.0); Platelet Count 258 10x3/uL (130-400); RBC Distribution Width 17.3 % (11.5-14.5)
[2024-08-10 05:03] LABS: ALT (SGPT) 251 U/L (8-55); AST (SGOT) 41 U/L (5-34); Albumin 3.7 g/dL (3.4-4.8); Alkaline Phosphatase 175 U/L (40-110); Anion Gap 17 mmol/L (10-20); BUN (Urea Nitrogen) 63 mg/dL (9.8-20.1); Bilirubin, Total 1.7 mg/dL (0.2-1.2); Calc. Creatinine Clearance 22 mL/min (70-130); Calcium 8.9 mg/dL (7.8-10.44); Carbon Dioxide 19 mmol/L (23-31); Chloride 103 mmol/L (98-107); Estimated GFR 21; Globulin 2.4 g/dL (2.4-3.5); Glucose 101 mg/dL (80-115); Potassium 3.7 mmol/L (3.5-5.1); Protein, Total 6.1 g/dL (5.8-8.1); Sodium 135 mmol/L (136-145)
[2024-08-10] MEDS: Isosorbide Mononitrate 60 MG ER.TAB PO SCH (08:41)
[2024-08-10] MEDS: Isosorbide Dinitrate 5 MG TAB PO SCH (21:34)
[2024-08-11 05:28] LABS: #Basophils Less than 0.03 10x3/uL (0.0-0.2); %Basophils 0.2 % (0.0-1.0); %Eosinophils 0.9 % (0.0-10.0); %Lymphocytes 10.3 % (21.0-51.0); %Neutrophils 75.5 % (42.0-75.0); Hematocrit 24.2 % (36.0-47.0); Mean Corpuscular HGB CONC 33.1 g/dL (32.0-36.0); Mean Corpuscular Hemoglobin 30.1 pg (27.0-31.0); Mean Platelet Volume 11.7 fL (7.4-10.4); Platelet Count 237 10x3/uL (130-400); RBC Distribution Width 17.5 % (11.5-14.5); Red Blood Cell (RBC) Count 2.66 mill/uL (4.20-5.40)
[2024-08-11 06:49] LABS: Anion Gap 16 mmol/L (10-20); BUN (Urea Nitrogen) 57 mg/dL (9.8-20.1); Calc. Creatinine Clearance 29 mL/min (70-130); Calcium 7.8 mg/dL (7.8-10.44); Carbon Dioxide 17 mmol/L (23-31); Chloride 109 mmol/L (98-107); Estimated GFR 25; Glucose 74 mg/dL (80-115); Potassium 3.2 mmol/L (3.5-5.1); Sodium 139 mmol/L (136-145)
[2024-08-11] MEDS: Potassium Chloride 20 MEQ TAB PO SCH (10:17)
[2024-08-12 03:46] LABS: #Basophils Less than 0.03 10x3/uL (0.0-0.2); %Basophils 0.2 % (0.0-1.0); %Eosinophils 1.2 % (0.0-10.0); %Lymphocytes 10.7 % (21.0-51.0); %Monocytes 12.9 % (0.0-10.0); %Neutrophils 74.4 % (42.0-75.0); Hematocrit 26.2 % (36.0-47.0); Hemoglobin 8.7 g/dL (12.0-16.0); Mean Corpuscular HGB CONC 33.2 g/dL (32.0-36.0); Mean Corpuscular Hemoglobin 29.7 pg (27.0-31.0); Mean Corpuscular Volume 89.4 fL (78.0-98.0); Mean Platelet Volume 11.2 fL (7.4-10.4); Platelet Count 226 10x3/uL (130-400); RBC Distribution Width 17.4 % (11.5-14.5); Red Blood Cell (RBC) Count 2.93 mill/uL (4.20-5.40)
[2024-08-12 09:07] LABS: ALT (SGPT) 158 U/L (8-55); AST (SGOT) 39 U/L (5-34); Albumin 3.7 g/dL (3.4-4.8); Alkaline Phosphatase 154 U/L (40-110); Anion Gap 17 mmol/L (10-20); BUN (Urea Nitrogen) 58 mg/dL (9.8-20.1); Bilirubin, Total 1.2 mg/dL (0.2-1.2); Calc. Creatinine Clearance 24 mL/min (70-130); Calcium 8.9 mg/dL (7.8-10.44); Carbon Dioxide 19 mmol/L (23-31); Chloride 103 mmol/L (98-107); Estimated GFR 20; Globulin 2.4 g/dL (2.4-3.5); Potassium 3.7 mmol/L (3.5-5.1); Protein, Total 6.1 g/dL (5.8-8.1); Sodium 135 mmol/L (136-145)
[2024-08-12 09:17] LABS: Glucose 101 mg/dL (80-115)
[2024-08-12 16:29] VITALS: BMI 29.3
[2024-08-12] MEDS: Lidocaine 4% Patch TD SCH (22:41)
[2024-08-13 04:31] LABS: #Basophils Less than 0.03 10x3/uL (0.0-0.2); %Basophils 0.3 % (0.0-1.0); %Eosinophils 1.3 % (0.0-10.0); %Lymphocytes 10.7 % (21.0-51.0); %Monocytes 14.2 % (0.0-10.0); %Neutrophils 72.9 % (42.0-75.0); Hematocrit 25.8 % (36.0-47.0); Hemoglobin 8.3 g/dL (12.0-16.0); Mean Corpuscular HGB CONC 32.2 g/dL (32.0-36.0); Mean Corpuscular Hemoglobin 29.5 pg (27.0-31.0); Mean Corpuscular Volume 91.8 fL (78.0-98.0); Mean Platelet Volume 11.3 fL (7.4-10.4); Platelet Count 257 10x3/uL (130-400); RBC Distribution Width 17.4 % (11.5-14.5); Red Blood Cell (RBC) Count 2.81 mill/uL (4.20-5.40)
[2024-08-13] MEDS ORDERED: Sodium Bicarbonate Tab 325 MG TAB PO SCH (09:00)
[2024-08-13] MEDS: Albumin 25% 25 GM (100 mL) BOT IVPB SCH (09:39)
[2024-08-13] MEDS: Empagliflozin 10 MG TAB PO SCH (09:39)
[2024-08-13] MEDS: hydrALAZINE 25 MG TAB PO SCH (09:40)
[2024-08-13] MEDS: Transdermal Patch Removal TOP SCH (09:41)
[2024-08-13 10:25] LABS: ALT (SGPT) 136 U/L (8-55); AST (SGOT) 47 U/L (5-34); Albumin 3.6 g/dL (3.4-4.8); Alkaline Phosphatase 144 U/L (40-110); Anion Gap 16 mmol/L (10-20); BUN (Urea Nitrogen) 57 mg/dL (9.8-20.1); Bilirubin, Total 1.1 mg/dL (0.2-1.2); Calc. Creatinine Clearance 22 mL/min (70-130); Calcium 8.9 mg/dL (7.8-10.44); Carbon Dioxide 21 mmol/L (23-31); Chloride 103 mmol/L (98-107); Estimated GFR 18; Globulin 2.7 g/dL (2.4-3.5); Glucose 89 mg/dL (80-115); Protein, Total 6.3 g/dL (5.8-8.1); Sodium 136 mmol/L (136-145)
[2024-08-13] MEDS: Furosemide 40 MG (4 mL) VIAL SLOW IVP SCH (13:13)
[2024-08-13] MEDS: Megestrol Acetate 800 MG/20 ML UDCUP PO SCH (17:58)
[2024-08-13] MEDS: Furosemide 20 MG (2 mL) VIAL SLOW IVP SCH (23:05)
[2024-08-13] MEDS: Ipratropium/Albuterol 3 ML NEB NEB PRN (23:14)
[2024-08-14 04:12] LABS: #Basophils 0.03 10x3/uL (0.0-0.2); %Basophils 0.4 % (0.0-1.0); %Lymphocytes 10.1 % (21.0-51.0); %Monocytes 12.4 % (0.0-10.0); %Neutrophils 75.5 % (42.0-75.0); Hematocrit 23.5 % (36.0-47.0); Hemoglobin 7.6 g/dL (12.0-16.0); Mean Corpuscular HGB CONC 32.3 g/dL (32.0-36.0); Mean Corpuscular Hemoglobin 30.3 pg (27.0-31.0); Mean Corpuscular Volume 93.6 fL (78.0-98.0); Mean Platelet Volume 11.5 fL (7.4-10.4); Platelet Count 227 10x3/uL (130-400); RBC Distribution Width 17.4 % (11.5-14.5); Red Blood Cell (RBC) Count 2.51 mill/uL (4.20-5.40)
[2024-08-14 04:15] LABS: Anion Gap 17 mmol/L (10-20); BUN (Urea Nitrogen) 54 mg/dL (9.8-20.1); Calc. Creatinine Clearance 22 mL/min (70-130); Calcium 9.4 mg/dL (7.8-10.44); Carbon Dioxide 21 mmol/L (23-31); Chloride 103 mmol/L (98-107); Estimated GFR 18; Glucose 130 mg/dL (80-115); Potassium 3.6 mmol/L (3.5-5.1); Sodium 137 mmol/L (136-145)
[2024-08-14 07:05] LABS: #Basophils Less than 0.03 10x3/uL (0.0-0.2); #Eosinophils Less than 0.03 10x3/uL (0.0-0.7); %Basophils 0.2 % (0.0-1.0); %Eosinophils 0.2 % (0.0-10.0); %Lymphocytes 8.2 % (21.0-51.0); %Neutrophils 79.7 % (42.0-75.0); Hemoglobin 8.1 g/dL (12.0-16.0); Mean Corpuscular HGB CONC 32.4 g/dL (32.0-36.0); Mean Corpuscular Hemoglobin 30.1 pg (27.0-31.0); Mean Corpuscular Volume 92.9 fL (78.0-98.0); Mean Platelet Volume 11.2 fL (7.4-10.4); Platelet Count 232 10x3/uL (130-400); RBC Distribution Width 17.3 % (11.5-14.5); Red Blood Cell (RBC) Count 2.69 mill/uL (4.20-5.40)
[2024-08-14 07:23] LABS: ALT (SGPT) 91 U/L (8-55); AST (SGOT) 36 U/L (5-34); Alkaline Phosphatase 133 U/L (40-110); Anion Gap 21 mmol/L (10-20); BUN (Urea Nitrogen) 56 mg/dL (9.8-20.1); Bilirubin, Total 1.5 mg/dL (0.2-1.2); Calc. Creatinine Clearance 22 mL/min (70-130); Calcium 9.6 mg/dL (7.8-10.44); Carbon Dioxide 19 mmol/L (23-31); Chloride 103 mmol/L (98-107); Estimated GFR 18; Globulin 2.3 g/dL (2.4-3.5); Glucose 125 mg/dL (80-115); Potassium 3.8 mmol/L (3.5-5.1); Protein, Total 7.3 g/dL (5.8-8.1); Sodium 139 mmol/L (136-145)
[2024-08-14 08:03] LABS: Critical Call Chem Troponin I ICU.UKA; Troponin I 0.384 ng/mL (< 0.028)
[2024-08-14] MEDS: Furosemide 20 MG (2 mL) VIAL ONE (08:35)
[2024-08-14 09:12] LABS: Actual Bicarbonate (HCO3v) 20.9 mEq/L (22-28); Base Excess -2.6 mEq/L (-2.0 to +3.0); Calcium, Ionized (venous) 1.14 mmol/L (1.16-1.32); Chloride (VBG) 101 mmol/L (98-106); Hematocrit-VBG 26 % (36.0-47.0); Potassium (VBG) 3.75 mmol/L (3.70-5.30); Sodium 139 mmol/L (133-146); pH (venous) 7.445 (7.32-7.43)
[2024-08-14] MEDS ORDERED: Furosemide 40 MG (4 mL) VIAL SLOW IVP SCH (09:44)
[2024-08-14] MEDS: Megestrol Acetate 800 MG/20 ML UDCUP PO SCH (09:47)
[2024-08-14 12:20] LABS: Actual Bicarbonate (HCO3a) 22.6 mEq/L (22-28); Base Excess (BEa) -1.1 mEq/L (-2.0 to +3.0); Calcium, Ionized (arterial) 1.16 mmol/L (1.12-1.30); Carboxyhemoglobin (COHb) 0.4 gm% (0.0-3.0); Hematocrit-ABG 27 % (36.0-47.0); Hemoglobin (Hb) 9.2 g/dL (12.0-16.0); O2 Tension (PaO2), arterial 60.1 mmHg (> 70.0); Potassium - ABG Lab 3.86 mmol/L (3.70-5.30); Puncture Site Left Radial artery; pH, Arterial 7.441 (7.35-7.45)
[2024-08-14] MEDS: Nitroglycerin 2% Ointment 1 INCH/1 GM Packet ONE (13:07)
[2024-08-14] MEDS: Furosemide 100 MG (10 mL) VIAL SLOW IVP SCH (13:08)
[2024-08-14] MEDS: Albumin 25% 25 GM (100 mL) BOT IVPB SCH (13:08)
[2024-08-14] MEDS: Heparin 5,000 UNITS/ML VIAL SC SCH (13:10)
[2024-08-14 14:39] LABS: Anion Gap 19 mmol/L (10-20); BUN (Urea Nitrogen) 57 mg/dL (9.8-20.1); Calc. Creatinine Clearance 22 mL/min (70-130); Calcium 9.7 mg/dL (7.8-10.44); Carbon Dioxide 21 mmol/L (23-31); Chloride 103 mmol/L (98-107); Estimated GFR 18; Potassium 3.8 mmol/L (3.5-5.1); Sodium 139 mmol/L (136-145)
[2024-08-14 15:43] LABS: Glucose 103 mg/dL (80-115)
[2024-08-15] MEDS: Melatonin 3 MG TAB PO SCH (02:24)
[2024-08-15] MEDS: traMADol HCl 50 MG TAB PO SCH (02:29)
[2024-08-15] MEDS: Morphine 2 MG/ML VIAL SLOW IVP PRN (02:49)
[2024-08-15 05:31] LABS: #Basophils Less than 0.03 10x3/uL (0.0-0.2); #Eosinophils Less than 0.03 10x3/uL (0.0-0.7); %Basophils 0.1 % (0.0-1.0); %Lymphocytes 4.2 % (21.0-51.0); %Monocytes 8.4 % (0.0-10.0); %Neutrophils 86.6 % (42.0-75.0); Hematocrit 23.6 % (36.0-47.0); Hemoglobin 7.6 g/dL (12.0-16.0); Mean Corpuscular HGB CONC 32.2 g/dL (32.0-36.0); Mean Corpuscular Hemoglobin 29.9 pg (27.0-31.0); Mean Corpuscular Volume 92.9 fL (78.0-98.0); Mean Platelet Volume 11.8 fL (7.4-10.4); Platelet Count 211 10x3/uL (130-400); RBC Distribution Width 17.6 % (11.5-14.5); Red Blood Cell (RBC) Count 2.54 mill/uL (4.20-5.40)
[2024-08-15 05:43] LABS: ALT (SGPT) 69 U/L (8-55); AST (SGOT) 31 U/L (5-34); Albumin 5.4 g/dL (3.4-4.8); Alkaline Phosphatase 110 U/L (40-110); Anion Gap 20 mmol/L (10-20); BUN (Urea Nitrogen) 64 mg/dL (9.8-20.1); Bilirubin, Total 2.1 mg/dL (0.2-1.2); Calc. Creatinine Clearance 20 mL/min (70-130); Carbon Dioxide 21 mmol/L (23-31); Chloride 102 mmol/L (98-107); Estimated GFR 16; Glucose 99 mg/dL (80-115); Potassium 4.2 mmol/L (3.5-5.1); Protein, Total 7.4 g/dL (5.8-8.1); Sodium 139 mmol/L (136-145)
[2024-08-15] MEDS ORDERED: Furosemide 100 MG (10 mL) VIAL SLOW IVP SCH (09:33)
[2024-08-15] MEDS: Metolazone 5 MG TAB PO SCH (09:54)
[2024-08-15] MEDS: Dexmedetomidine In 0.9 % NaCl 100 ML IVPB SCH (12:08)
[2024-08-15] MEDS: Furosemide 40 MG (4 mL) VIAL SLOW IVP SCH (14:32)
[2024-08-15 14:34] VITALS: BP 124/67
[2024-08-15 15:56] LABS: Anion Gap 24 mmol/L (10-20); BUN (Urea Nitrogen) 71 mg/dL (9.8-20.1); Calc. Creatinine Clearance 19 mL/min (70-130); Carbon Dioxide 20 mmol/L (23-31); Chloride 100 mmol/L (98-107); Estimated GFR 15; Glucose 82 mg/dL (80-115); Potassium 4.4 mmol/L (3.5-5.1); Sodium 140 mmol/L (136-145)
[2024-08-15] MEDS: Lorazepam 2 MG/ML VIAL SLOW IVP PRN (19:13)
[2024-08-16 04:23] LABS: #Basophils Less than 0.03 10x3/uL (0.0-0.2); #Eosinophils Less than 0.03 10x3/uL (0.0-0.7); %Basophils 0.1 % (0.0-1.0); %Lymphocytes 4.6 % (21.0-51.0); %Monocytes 4.1 % (0.0-10.0); %Neutrophils 90.2 % (42.0-75.0); Hematocrit 23.9 % (36.0-47.0); Hemoglobin 7.5 g/dL (12.0-16.0); Mean Corpuscular HGB CONC 31.4 g/dL (32.0-36.0); Mean Corpuscular Hemoglobin 29.9 pg (27.0-31.0); Mean Corpuscular Volume 95.2 fL (78.0-98.0); Mean Platelet Volume 12.2 fL (7.4-10.4); Platelet Count 188 10x3/uL (130-400); RBC Distribution Width 17.2 % (11.5-14.5); Red Blood Cell (RBC) Count 2.51 mill/uL (4.20-5.40)
[2024-08-16 04:41] LABS: ALT (SGPT) 92 U/L (8-55); AST (SGOT) 71 U/L (5-34); Albumin 4.8 g/dL (3.4-4.8); Alkaline Phosphatase 105 U/L (40-110); Anion Gap 23 mmol/L (10-20); BUN (Urea Nitrogen) 83 mg/dL (9.8-20.1); Calc. Creatinine Clearance 16 mL/min (70-130); Calcium 9.5 mg/dL (7.8-10.44); Carbon Dioxide 21 mmol/L (23-31); Chloride 101 mmol/L (98-107); Estimated GFR 12; Globulin 2.1 g/dL (2.4-3.5); Glucose 77 mg/dL (80-115); Magnesium 2.2 mg/dL (1.6-2.6); Potassium 4.1 mmol/L (3.5-5.1); Protein, Total 6.9 g/dL (5.8-8.1); Sodium 141 mmol/L (136-145)
[2024-08-16 10:27] VITALS: TEMP 97.8
[2024-08-16] MEDS ORDERED: Lorazepam 2 MG/ML VIAL SLOW IVP PRN (11:23)
[2024-08-16] MEDS ORDERED: Morphine 4 MG/ML VIAL SLOW IVP PRN (11:23)
== END 2024-08-16 11:44 | disposition expired | DRG 235 ==
LOC: SURG A 07-28 06:10 → EDSTATUS 07-28 11:30 → CCU 07-28 12:55 → IMCU/EMU 08-05 18:02 → 2NO 08-07 20:45 → CCU 08-14 07:04
PROVIDERS: ADMIT Student in an Organized Health Care Education/Training Program; ATTEND Internal Medicine
PROC: 02100Z9 Bypass Coronary Artery, One Artery from Left Internal Mammary, Open Approach (ICD-10-PCS; principal; 2024-07-28)
PROC: 021009W Bypass Coronary Artery, One Artery from Aorta with Autologous Venous Tissue, Open Approach (ICD-10-PCS; 2024-07-28)
PROC: 06BP4ZZ Excision of Right Saphenous Vein, Percutaneous Endoscopic Approach (ICD-10-PCS; 2024-07-28)
PROC: 5A1221Z Performance of Cardiac Output, Continuous (ICD-10-PCS; 2024-07-28)
PROC: 02L70CK Occlusion of Left Atrial Appendage with Extraluminal Device, Open Approach (ICD-10-PCS; 2024-07-28)
PROC: 30233N1 Transfusion of Nonautologous Red Blood Cells into Peripheral Vein, Percutaneous Approach (ICD-10-PCS; 2024-07-28)
PROC: 4A133R1 Monitoring of Arterial Saturation, Peripheral, Percutaneous Approach (ICD-10-PCS; 2024-07-28)
PROC: 3E033XZ Introduction of Vasopressor into Peripheral Vein, Percutaneous Approach (ICD-10-PCS; 2024-07-28)
PROC: 30233J1 Transfusion of Nonautologous Serum Albumin into Peripheral Vein, Percutaneous Approach (ICD-10-PCS; 2024-07-28)
PROC: 3E03329 Introduction of Other Anti-infective into Peripheral Vein, Percutaneous Approach (ICD-10-PCS; 2024-07-28)
PROC: 0T9B70Z Drainage of Bladder with Drainage Device, Via Natural or Artificial Opening (ICD-10-PCS; 2024-07-28)
PROC: 0W9B3ZZ Drainage of Left Pleural Cavity, Percutaneous Approach (ICD-10-PCS; 2024-08-01)
PROC: 5A0945A Assistance with Respiratory Ventilation, 24-96 Consecutive Hours, High Flow/Velocity Cannula (ICD-10-PCS; 2024-08-01)
PROC: 5A09457 Assistance with Respiratory Ventilation, 24-96 Consecutive Hours, Continuous Positive Airway Pressure (ICD-10-PCS; 2024-08-14)
DX: I25.118 Atherosclerotic heart disease of native coronary artery with other forms of angina pectoris (principal); I50.31 Acute diastolic (congestive) heart failure; J96.21 Acute and chronic respiratory failure with hypoxia; K72.00 Acute and subacute hepatic failure without coma; I13.0 Hypertensive heart and chronic kidney disease with heart failure and stage 1 through stage 4 chronic kidney disease, or unspecified chronic kidney disease; J90 Pleural effusion, not elsewhere classified; N17.9 Acute kidney failure, unspecified; E87.1 Hypo-osmolality and hyponatremia; E87.20 Acidosis, unspecified; N18.4 Chronic kidney disease, stage 4 (severe); J98.11 Atelectasis; D62 Acute posthemorrhagic anemia; B18.1 Chronic viral hepatitis B without delta-agent; Z66 Do not resuscitate; Z51.5 Encounter for palliative care; M10.9 Gout, unspecified; I73.9 Peripheral vascular disease, unspecified; F32.A Depression, unspecified; D63.1 Anemia in chronic kidney disease; E87.6 Hypokalemia; E86.1 Hypovolemia; F41.9 Anxiety disorder, unspecified; E87.5 Hyperkalemia; I48.0 Paroxysmal atrial fibrillation; E78.5 Hyperlipidemia, unspecified; G89.4 Chronic pain syndrome; J44.9 Chronic obstructive pulmonary disease, unspecified; R79.89 Other specified abnormal findings of blood chemistry; Z96.652 Presence of left artificial knee joint; R44.1 Visual hallucinations; K75.4 Autoimmune hepatitis; R00.1 Bradycardia, unspecified; K71.9 Toxic liver disease, unspecified; T46.2X5A Adverse effect of other antidysrhythmic drugs, initial encounter; R74.01 Elevation of levels of liver transaminase levels; I95.9 Hypotension, unspecified; D69.6 Thrombocytopenia, unspecified; Z90.710 Acquired absence of both cervix and uterus; Z98.890 Other specified postprocedural states; Z90.5 Acquired absence of kidney; Z88.0 Allergy status to penicillin; Z79.899 Other long term (current) drug therapy; Z90.49 Acquired absence of other specified parts of digestive tract; I08.0 Rheumatic disorders of both mitral and aortic valves
CPT/HCPCS: 36415; 36416; 36430; 36600; 71045; 80048; 80053; 80061; 80074; 80076; 82150; 82390; 82525; 82805; 82945; 83010; 83036; 83615; 83735; 83880; 83986; 84100; 84157; 84443; 84478; 84484; 85025; 85049; 85060; 85300; 85362; 85384; 85610; 85730; 86015; 86038; 86225; 86850; 86900; 86901; 87116; 87206; 88112; 88305; 88341; 88342; 89051; 93005; 93010; 93306; 93798; 93970; 94002; 94003; 94150; 94640; 94660; 97139; A4311; A4648; C1751; J0171; J0282; J0360; J0665; J1100; J1642; J1644; J1815; J1940; J2003; J2060; J2150; J2250; J2272; J2405; J2440; J2470; J2704; J2720; J3010; J3370; J3475; J3480; J3490; J7030; J7050; J7070; J7620; J7999; P9016; P9045; P9047; Q0162; S0017